=== PATIENT | female | born 1955 | race Two or more races ===

== ENCOUNTER 2021-02-11 01:51 | Inpatient (IN) | payer MEDICAID, OTHER ==
[2021-02-11] VITALS (71 sets, daily range): BP systolic 98–159; BP diastolic 45–95
[~2021-02-11] VITALS: Ht 167.6 cm; Wt 99.0 kg
[2021-02-11] MEDS ORDERED: KETAMINE HCL 50 MG/ML 10ML IM NR (02:15)
[2021-02-11] MEDS ORDERED: IPRATROPIUM BROMIDE (0.02%) 0.5MG/2.5ML NEB HHN STA (02:28)
[2021-02-11] MEDS ORDERED: ONDANSETRON HCL 4MG/2ML INJ IV STA (02:28)
[2021-02-11] MEDS ORDERED: METHYLPREDNISOLONE SOD SUCC 125 MG/2 ML VIAL IV STA (02:28)
[2021-02-11] MEDS ORDERED: MORPHINE SULFATE 4 MG/ML CPJ (NOT FOR IM USE) IV STA (02:28)
[2021-02-11] MEDS ORDERED: PROPOFOL 10MG/ML 100ML 100 ML IV ONE (02:30)
[2021-02-11] MEDS ORDERED: MAGNESIUM 2 G PREMIX 50 ML IV ONE (02:30)
[2021-02-11] MEDS ORDERED: VECURONIUM BROMIDE 10 MG/VIAL IV ONE (02:30)
[2021-02-11] MEDS ORDERED: ETOMIDATE 2MG/ML 10ML VIAL IV ONE (02:30)
[2021-02-11 02:47] LABS: BASOPHILS % 0.3 % (0.0-2.0); EOSINOPHILS % 1.5 % (0.0-5.0); HEMATOCRIT. 34.2 % (36.0-48.0); HEMOGLOBIN. 11.3 g/dL (12.0-16.0); LYMPHOCYTES % 10.4 % (20.0-50.0); MEAN CORPUSCULAR HEMOGLOBIN 30.3 pg (28.0-32.0); MEAN CORPUSCULAR VOLUME 91.7 fL (81.0-99.0); MEAN PLATELET VOLUME 7.3 fl (7.4-10.4); MONOCYTES % 6.3 % (2.0-8.0); NEUTROPHILS % 81.5 % (40.0-76.0); PLATELET 246 x1000/uL (130-400); RED BLOOD CELL COUNT 3.72 mill/uL (4.2-5.4); RED CELL DISTRIBUTION WIDTH 16.9 % (11.6-14.6)
[2021-02-11 02:57] LABS: D-DIMER 0.7 mg/L FEU (<0.50); PROTHROMBIN TIME 10.7 sec (9.6-11.0)
[2021-02-11 03:03] LABS: CHLORIDE 103 mEq/L (98-107)
[2021-02-11 03:19] LABS: BG BASE EXCESS -6.4 mmol/L (-2.0-2.0); BG CARBOXYHEMOGLOBIN 1.5 % (0.5-1.5); BG FRACTION INSPIRED OXYGEN 60; BG HCO3 ACT 22.5 mmol/L (22.0-26.0); BG METHEMOGLOBIN 0.2 % (0.0-1.5); BG OXYGEN SATURATION 89.8 % (92.0-98.5); BG OXYHEMOGLOBIN 88.3 % (94.0-97.0); BG PH 7.191 (7.350-7.450); BG PO2 69.1 mmHg (75.0-100.0); BG TOTAL HEMOGLOBIN 12.8 g/dL (12.0-18.0); BG VENT MODE VENT - AC
[2021-02-11] MEDS: ALBUTEROL (0.083%) 2.5MG/3ML NEB HHN SCH ×2 (03:24→03:30)
[2021-02-11] MEDS ORDERED: PROPOFOL 10MG/ML 100ML 100 ML IV PRN ×2 (06:45→10:45)
[2021-02-11] MEDS ORDERED: DEXT 5%/0.45% NACL 1000ML 1,000 ML IV SCH (07:00)
[2021-02-11 07:49] LABS: BG BASE EXCESS -7.8 mmol/L (-2.0-2.0); BG CARBOXYHEMOGLOBIN 0.2 % (0.5-1.5); BG DEOXYHEMOGLOBIN 5.7 % (0.0-5.0); BG FRACTION INSPIRED OXYGEN 75; BG HCO3 ACT 20.1 mmol/L (22.0-26.0); BG METHEMOGLOBIN 0.3 % (0.0-1.5); BG OXYGEN SATURATION 94.3 % (92.0-98.5); BG OXYHEMOGLOBIN 93.8 % (94.0-97.0); BG PH 7.213 (7.350-7.450); BG PO2 79.1 mmHg (75.0-100.0); BG SAMPLE SITE RIGHT RADIAL; BG TOTAL HEMOGLOBIN 12.5 g/dL (12.0-18.0); BG TOTAL RESPIRATORY RATE 24 b/min; BG VENT MODE VENT - AC
[2021-02-11] MEDS: IPRATROPIUM/ALBUTEROL 0.5-3(2.5)MG/3ML NEB HHN SCH ×4 (08:01→20:27)
[2021-02-11] MEDS ORDERED: ONDANSETRON HCL 4MG/2ML INJ IV PRN (08:15)
[2021-02-11] MEDS ORDERED: FUROSEMIDE 40MG/4ML VIAL IVP NR (08:15)
[2021-02-11] MEDS: PANTOPRAZOLE SODIUM 40 MG/VIAL IV SCH (08:36)
[2021-02-11] MEDS: CEFTRIAXONE 1,000 MG in DEXTROSE 5% WATER 50 ML IV SCH (08:36)
[2021-02-11] MEDS: ENOXAPARIN 30MG/0.3ML SYR SUBCUT SCH ×2 (08:37→21:00)
[2021-02-11] MEDS ORDERED: ENOXAPARIN 40MG/0.4ML SYR SUBCUT SCH (09:00)
[2021-02-11] MEDS ORDERED: PANTOPRAZOLE SODIUM 40 MG/VIAL IV SCH (09:00)
[2021-02-11] MEDS: AZITHROMYCIN 500 MG in DEXT 5% WATER 250 ML IV SCH (10:08)
[2021-02-11] MEDS: METHYLPREDNISOLONE SOD SUCC 125 MG/2 ML VIAL IV SCH ×2 (12:49→17:12)
[2021-02-11] MEDS: ISOSORBIDE DINITRATE 10MG TABLET PO SCH ×2 (12:50→17:12)
[2021-02-11] MEDS: HYDRALAZINE HCL 25MG TABLET PO SCH ×2 (13:06→21:00)
[2021-02-11 17:09] LABS: CLARITY URINE CLEAR (CLEAR); COLOR URINE YELLOW (YELLOW); KETONES URINE NEGATIVE (NEGATIVE); LEUKOCYTE ESTERASE URINE NEGATIVE (NEGATIVE); NITRITE URINE NEGATIVE (NEGATIVE); OCCULT BLOOD URINE NEGATIVE (NEGATIVE); PROTEIN URINE NEGATIVE (NEGATIVE); SPECIFIC GRAVITY URINE 1.014 (1.005-1.030); UROBILINOGEN URINE 0.2 E.U./dL (0.2-1.0)
[2021-02-11 17:18] LABS: *AMPHETAMINES SCREEN URINE NEGATIVE (NEGATIVE)
[2021-02-11 17:19] LABS: *BARBITURATES SCREEN URINE NEGATIVE (NEGATIVE); *BENZODIAZEPINES SCREEN URINE NEGATIVE (NEGATIVE); *COCAINE SCREEN URINE NEGATIVE (NEGATIVE); CANNABINOID URINE SCREEN NEGATIVE (NEGATIVE); METHADONE URINE SCREEN NEGATIVE (NEGATIVE); OPIATES URINE SCREEN PRESUMTIVE POSITIVE (NEGATIVE); PHENCYCLIDINE URINE SCREEN NEGATIVE (NEGATIVE)
[2021-02-11] MEDS ORDERED: MIDAZOLAM 100MG/100ML PMX 100 ML IV PRN (19:45)
[2021-02-11] MEDS: ATORVASTATIN CALCIUM 10MG TABLET PO SCH (21:00)
[2021-02-11] MEDS: MIDAZOLAM HCL 100 MG in SODIUM CHLORIDE 0.9% 100 ML IV PRN (22:06)
[2021-02-11] MEDS: FENTANYL CITRATE/PF 2,500 MCG in SODIUM CHLORIDE 0.9% 200 ML IV PRN (22:07)
[2021-02-12] VITALS (100 sets, daily range): BP systolic 66–163; BP diastolic 48–103
[2021-02-12] MEDS: IPRATROPIUM/ALBUTEROL 0.5-3(2.5)MG/3ML NEB HHN SCH ×5 (00:19→16:32)
[2021-02-12] MEDS: METHYLPREDNISOLONE SOD SUCC 125 MG/2 ML VIAL IV SCH ×2 (00:38→05:24)
[2021-02-12] MEDS: HYDRALAZINE HCL 25MG TABLET PO SCH (05:22)
[2021-02-12] MEDS: FENTANYL CITRATE/PF 2,500 MCG in SODIUM CHLORIDE 0.9% 200 ML IV PRN ×2 (05:22→18:34)
[2021-02-12 06:01] LABS: HEMATOCRIT. 34.1 % (36.0-48.0); HEMOGLOBIN. 11.3 g/dL (12.0-16.0); MEAN CORPUSCULAR HEMOGLOBIN 30.5 pg (28.0-32.0); MEAN CORPUSCULAR VOLUME 91.8 fL (81.0-99.0); MEAN PLATELET VOLUME 7.6 fl (7.4-10.4); PLATELET 310 x1000/uL (130-400); RED BLOOD CELL COUNT 3.71 mill/uL (4.2-5.4); RED CELL DISTRIBUTION WIDTH 17.1 % (11.6-14.6)
[2021-02-12 06:04] LABS: CHLORIDE 102 mEq/L (98-107)
[2021-02-12] MEDS ORDERED: NOREPINEPHRINE 8 MG in DEXT 5% WATER 242 ML IV PRN (07:45)
[2021-02-12 08:01] LABS: BG BASE EXCESS -3.7 mmol/L (-2.0-2.0); BG CARBOXYHEMOGLOBIN 0.3 % (0.5-1.5); BG DEOXYHEMOGLOBIN 1.2 % (0.0-5.0); BG FRACTION INSPIRED OXYGEN 75; BG METHEMOGLOBIN 0.1 % (0.0-1.5); BG OXYGEN SATURATION 98.8 % (92.0-98.5); BG OXYHEMOGLOBIN 98.4 % (94.0-97.0); BG PCO2 37.1 mmHg (35.0-45.0); BG PH 7.371 (7.350-7.450); BG PO2 152.8 mmHg (75.0-100.0); BG SAMPLE SITE RIGHT RADIAL; BG TOTAL HEMOGLOBIN 12.3 g/dL (12.0-18.0); BG VENT MODE VENT - AC
[2021-02-12] MEDS: PANTOPRAZOLE SODIUM 40 MG/VIAL IV SCH (08:34)
[2021-02-12] MEDS: CEFTRIAXONE 1,000 MG in DEXTROSE 5% WATER 50 ML IV SCH (08:34)
[2021-02-12] MEDS: ENOXAPARIN 30MG/0.3ML SYR SUBCUT SCH ×2 (08:34→21:13)
[2021-02-12] MEDS: ACETAMINOPHEN 325MG TABLET PO PRN (08:35)
[2021-02-12] MEDS: ISOSORBIDE DINITRATE 10MG TABLET PO SCH (08:35)
[2021-02-12] MEDS ORDERED: PHENYLEPHRINE 50 MG in DEXT 5% WATER 245 ML IV PRN (09:00)
[2021-02-12] MEDS ORDERED: BISACODYL 5MG TABLET PO PRN (09:15)
[2021-02-12] MEDS: AZITHROMYCIN 500 MG in DEXT 5% WATER 250 ML IV SCH (09:40)
[2021-02-12 10:06] LABS: PLATELET ESTIMATE NORMAL
[2021-02-12] MEDS: MIDODRINE HCL 5MG TABLET PO SCH ×3 (11:14→16:41)
[2021-02-12] MEDS: MIDAZOLAM HCL 100 MG in SODIUM CHLORIDE 0.9% 100 ML IV PRN ×2 (11:57→23:54)
[2021-02-12] MEDS: METHYLPREDNISOLONE SOD SUCC 40 MG/ML VIAL IV SCH ×2 (14:11→21:13)
[2021-02-12] MEDS ORDERED: VANCOMYCIN 2,000 MG in DEXT 5% WATER 500 ML IV NR (16:00)
[2021-02-12] MEDS ORDERED: AMIODARONE HCL 150 MG in DEXT 5% WATER 100 ML IV NR (19:30)
[2021-02-12] MEDS: ATORVASTATIN CALCIUM 10MG TABLET PO SCH (21:13)
[2021-02-12] MEDS: AMIODARONE HCL 900 MG in DEXT 5% WATER 482 ML IV PRN (21:42)
[2021-02-13] VITALS (74 sets, daily range): BP systolic 109–170; BP diastolic 63–107
[2021-02-13] MEDS: VANCOMYCIN 750 MG PREMIX 150 ML IV SCH ×2 (03:09→14:45)
[2021-02-13 05:54] LABS: HEMATOCRIT. 33.7 % (36.0-48.0); HEMOGLOBIN. 11.1 g/dL (12.0-16.0); MEAN CORPUSCULAR HEMOGLOBIN 29.7 pg (28.0-32.0); MEAN CORPUSCULAR VOLUME 89.9 fL (81.0-99.0); MEAN PLATELET VOLUME 7.7 fl (7.4-10.4); PLATELET 332 x1000/uL (130-400); RED BLOOD CELL COUNT 3.75 mill/uL (4.2-5.4); RED CELL DISTRIBUTION WIDTH 17.3 % (11.6-14.6)
[2021-02-13] MEDS: METHYLPREDNISOLONE SOD SUCC 40 MG/ML VIAL IV SCH ×3 (05:57→21:40)
[2021-02-13] MEDS: FENTANYL CITRATE/PF 2,500 MCG in SODIUM CHLORIDE 0.9% 200 ML IV PRN ×3 (05:58→23:17)
[2021-02-13 06:02] LABS: CHLORIDE 103 mEq/L (98-107)
[2021-02-13] MEDS: IPRATROPIUM/ALBUTEROL 0.5-3(2.5)MG/3ML NEB HHN SCH (07:57)
[2021-02-13] MEDS ORDERED: IPRATROPIUM BROMIDE (0.02%) 0.5MG/2.5ML NEB HHN PRN (08:15)
[2021-02-13] MEDS ORDERED: SODIUM CHLORIDE 3% FOR INH 4ML UD NEB INH NR (08:15)
[2021-02-13] MEDS: METOPROLOL TARTRATE 25MG TABLET PO SCH ×3 (09:00→21:39)
[2021-02-13 09:03] LABS: BG CARBOXYHEMOGLOBIN 0.2 % (0.5-1.5); BG DEOXYHEMOGLOBIN 7.9 % (0.0-5.0); BG FRACTION INSPIRED OXYGEN 80; BG HCO3 ACT 24.3 mmol/L (22.0-26.0); BG METHEMOGLOBIN 0.1 % (0.0-1.5); BG OXYGEN SATURATION 92.1 % (92.0-98.5); BG OXYHEMOGLOBIN 91.8 % (94.0-97.0); BG PCO2 38.3 mmHg (35.0-45.0); BG PH 7.421 (7.350-7.450); BG PO2 65.4 mmHg (75.0-100.0); BG SAMPLE SITE LEFT RADIAL; BG TOTAL HEMOGLOBIN 10.8 g/dL (12.0-18.0); BG VENT MODE VENT - AC
[2021-02-13] MEDS: AZITHROMYCIN 500 MG in DEXT 5% WATER 250 ML IV SCH (09:22)
[2021-02-13] MEDS: PANTOPRAZOLE SODIUM 40 MG/VIAL IV SCH (09:23)
[2021-02-13] MEDS: MIDODRINE HCL 5MG TABLET PO SCH (09:23)
[2021-02-13] MEDS: CEFTRIAXONE 1,000 MG in DEXTROSE 5% WATER 50 ML IV SCH (09:23)
[2021-02-13] MEDS: ENOXAPARIN 30MG/0.3ML SYR SUBCUT SCH ×2 (09:23→21:40)
[2021-02-13] MEDS: MIDAZOLAM HCL 100 MG in SODIUM CHLORIDE 0.9% 100 ML IV PRN ×2 (09:48→18:53)
[2021-02-13] MEDS: ACETYLCYSTEINE 100MG/ML 10% VIAL 4ML INH SCH ×3 (11:48→15:25)
[2021-02-13] MEDS: IPRATROPIUM BROMIDE (0.02%) 0.5MG/2.5ML NEB HHN SCH ×3 (11:49→20:48)
[2021-02-13 12:01] LABS: PLATELET ESTIMATE NORMAL
[2021-02-13] MEDS: CLOPIDOGREL 75MG TABLET PO SCH (14:31)
[2021-02-13] MEDS: ASPIRIN 81MG TABLET PO SCH (15:56)
[2021-02-13] MEDS: AMIODARONE HCL 900 MG in DEXT 5% WATER 482 ML IV PRN (18:52)
[2021-02-13] MEDS: ATORVASTATIN CALCIUM 10MG TABLET PO SCH (21:42)
[2021-02-14] VITALS (93 sets, daily range): BP systolic 115–181; BP diastolic 62–124
[2021-02-14] MEDS: IPRATROPIUM BROMIDE (0.02%) 0.5MG/2.5ML NEB HHN SCH ×6 (00:25→20:09)
[2021-02-14] MEDS: ACETYLCYSTEINE 100MG/ML 10% VIAL 4ML INH SCH ×3 (00:25→15:55)
[2021-02-14] MEDS: VANCOMYCIN 750 MG PREMIX 150 ML IV SCH (02:23)
[2021-02-14] MEDS: MIDAZOLAM HCL 100 MG in SODIUM CHLORIDE 0.9% 100 ML IV PRN ×2 (05:38→15:35)
[2021-02-14 05:47] LABS: BASOPHILS % 0.1 % (0.0-2.0); EOSINOPHILS % 0.1 % (0.0-5.0); HEMATOCRIT. 34.5 % (36.0-48.0); HEMOGLOBIN. 11.2 g/dL (12.0-16.0); LYMPHOCYTES % 8.6 % (20.0-50.0); MEAN CORPUSCULAR HEMOGLOBIN 29.9 pg (28.0-32.0); MEAN CORPUSCULAR VOLUME 92.3 fL (81.0-99.0); MEAN PLATELET VOLUME 7.5 fl (7.4-10.4); MONOCYTES % 2.5 % (2.0-8.0); NEUTROPHILS % 88.7 % (40.0-76.0); PLATELET 261 x1000/uL (130-400); RED BLOOD CELL COUNT 3.74 mill/uL (4.2-5.4); RED CELL DISTRIBUTION WIDTH 16.9 % (11.6-14.6)
[2021-02-14 05:51] LABS: CHLORIDE 101 mEq/L (98-107)
[2021-02-14] MEDS: METHYLPREDNISOLONE SOD SUCC 40 MG/ML VIAL IV SCH (06:07)
[2021-02-14] MEDS: FENTANYL CITRATE/PF 2,500 MCG in SODIUM CHLORIDE 0.9% 200 ML IV PRN ×3 (07:54→22:30)
[2021-02-14] MEDS: CEFTRIAXONE 1,000 MG in DEXTROSE 5% WATER 50 ML IV SCH (08:15)
[2021-02-14 08:52] LABS: BG BASE EXCESS -1.1 mmol/L (-2.0-2.0); BG CARBOXYHEMOGLOBIN 0.5 % (0.5-1.5); BG DEOXYHEMOGLOBIN 4.3 % (0.0-5.0); BG FRACTION INSPIRED OXYGEN 80; BG HCO3 ACT 22.5 mmol/L (22.0-26.0); BG METHEMOGLOBIN 0.2 % (0.0-1.5); BG OXYGEN SATURATION 95.7 % (92.0-98.5); BG PCO2 33.9 mmHg (35.0-45.0); BG PH 7.439 (7.350-7.450); BG PO2 79.2 mmHg (75.0-100.0); BG SAMPLE SITE LEFT RADIAL; BG TOTAL HEMOGLOBIN 12.1 g/dL (12.0-18.0); BG VENT MODE VENT - AC
[2021-02-14] MEDS ORDERED: ASPIRIN 81MG TABLET PO SCH (09:00)
[2021-02-14] MEDS ORDERED: LIDOCAINE HCL 2% JELLY 5ML ONE (09:11)
[2021-02-14] MEDS: AZITHROMYCIN 500 MG in DEXT 5% WATER 250 ML IV SCH (09:33)
[2021-02-14] MEDS: PANTOPRAZOLE SODIUM 40 MG/VIAL IV SCH (09:33)
[2021-02-14] MEDS: ENOXAPARIN 30MG/0.3ML SYR SUBCUT SCH ×2 (09:34→20:19)
[2021-02-14] MEDS: METOPROLOL TARTRATE 25MG TABLET PO SCH (09:34)
[2021-02-14] MEDS: ASPIRIN 81MG TABLET PO SCH (09:34)
[2021-02-14] MEDS: CLOPIDOGREL 75MG TABLET PO SCH (09:34)
[2021-02-14] MEDS ORDERED: IOHEXOL-350 100 ML BOTTLE ONE (13:14)
[2021-02-14] MEDS ORDERED: METOPROLOL TARTRATE 25MG TABLET PO SCH (16:15)
[2021-02-14] MEDS: LORAZEPAM 2MG/ML CPJ IV PRN (16:40)
[2021-02-14] MEDS ORDERED: METHYLPREDNISOLONE SOD SUCC 40 MG/ML VIAL IV SCH (17:00)
[2021-02-14] MEDS: VANCOMYCIN 1 G PREMIX 200 ML IV SCH (17:20)
[2021-02-14] MEDS ORDERED: LACTULOSE 20G/30ML UDC PO PRN (19:15)
[2021-02-14] MEDS: ATORVASTATIN CALCIUM 10MG TABLET PO SCH (20:19)
[2021-02-14] MEDS ORDERED: METOPROLOL TARTRATE 50MG TABLET PO SCH (21:00)
[2021-02-14] MEDS: HYDRALAZINE 20MG/ML VIAL IV PRN (23:36)
[2021-02-15] VITALS (94 sets, daily range): BP systolic 82–187; BP diastolic 48–133
[2021-02-15] MEDS: ACETYLCYSTEINE 100MG/ML 10% VIAL 4ML INH SCH ×3 (00:08→15:33)
[2021-02-15] MEDS: IPRATROPIUM BROMIDE (0.02%) 0.5MG/2.5ML NEB HHN SCH ×6 (00:08→20:27)
[2021-02-15] MEDS: MIDAZOLAM HCL 100 MG in SODIUM CHLORIDE 0.9% 100 ML IV PRN ×3 (01:46→19:03)
[2021-02-15 04:50] LABS: HEMATOCRIT. 40.7 % (36.0-48.0); HEMOGLOBIN. 13.7 g/dL (12.0-16.0); MEAN CORPUSCULAR HEMOGLOBIN 30.6 pg (28.0-32.0); MEAN CORPUSCULAR VOLUME 90.6 fL (81.0-99.0); MEAN PLATELET VOLUME 7.4 fl (7.4-10.4); PLATELET 281 x1000/uL (130-400); RED BLOOD CELL COUNT 4.49 mill/uL (4.2-5.4); RED CELL DISTRIBUTION WIDTH 16.9 % (11.6-14.6)
[2021-02-15 05:00] LABS: CHLORIDE 100 mEq/L (98-107)
[2021-02-15] MEDS: FENTANYL CITRATE/PF 2,500 MCG in SODIUM CHLORIDE 0.9% 200 ML IV PRN ×3 (06:20→23:10)
[2021-02-15 07:52] LABS: PLATELET ESTIMATE NORMAL
[2021-02-15] MEDS: CEFTRIAXONE 1,000 MG in DEXTROSE 5% WATER 50 ML IV SCH (08:04)
[2021-02-15] MEDS: HYDRALAZINE 20MG/ML VIAL IV PRN ×2 (08:06→16:15)
[2021-02-15] MEDS: PANTOPRAZOLE SODIUM 40 MG/VIAL IV SCH (08:55)
[2021-02-15] MEDS: ASPIRIN 81MG TABLET PO SCH (08:57)
[2021-02-15] MEDS: METOPROLOL TARTRATE 50MG TABLET PO SCH ×3 (08:57→22:35)
[2021-02-15] MEDS: LORAZEPAM 2MG/ML CPJ IV PRN ×3 (08:58→22:30)
[2021-02-15] MEDS: METHYLPREDNISOLONE SOD SUCC 40 MG/ML VIAL IV SCH (08:58)
[2021-02-15 08:59] LABS: BG BASE EXCESS 2.2 mmol/L (-2.0-2.0); BG CARBOXYHEMOGLOBIN 0.6 % (0.5-1.5); BG DEOXYHEMOGLOBIN 5.5 % (0.0-5.0); BG HCO3 ACT 26.1 mmol/L (22.0-26.0); BG METHEMOGLOBIN 0.4 % (0.0-1.5); BG OXYGEN SATURATION 94.4 % (92.0-98.5); BG OXYHEMOGLOBIN 93.5 % (94.0-97.0); BG PCO2 38.3 mmHg (35.0-45.0); BG PH 7.452 (7.350-7.450); BG PO2 73.9 mmHg (75.0-100.0); BG SAMPLE SITE RIGHT RADIAL; BG TOTAL HEMOGLOBIN 13.1 g/dL (12.0-18.0); BG VENT MODE VENT - AC
[2021-02-15 09:01] LABS: BG VENT RATE 20 set
[2021-02-15 09:02] LABS: BG FRACTION INSPIRED OXYGEN 70; BG TIDAL VOLUME(mL) 450 mL
[2021-02-15] MEDS: ENOXAPARIN 30MG/0.3ML SYR SUBCUT SCH ×2 (09:08→21:58)
[2021-02-15] MEDS: CLOPIDOGREL 75MG TABLET PO SCH (09:13)
[2021-02-15] MEDS ORDERED: FUROSEMIDE 40MG/4ML VIAL IVP NR (09:30)
[2021-02-15] MEDS: VANCOMYCIN 1 G PREMIX 200 ML IV SCH (12:32)
[2021-02-15] MEDS: ATORVASTATIN CALCIUM 10MG TABLET PO SCH (22:14)
[2021-02-16] VITALS (98 sets, daily range): BP systolic 74–163; BP diastolic 33–118
[2021-02-16] MEDS: ACETYLCYSTEINE 100MG/ML 10% VIAL 4ML INH SCH ×3 (00:07→15:55)
[2021-02-16] MEDS: IPRATROPIUM BROMIDE (0.02%) 0.5MG/2.5ML NEB HHN SCH ×7 (00:07→20:16)
[2021-02-16] MEDS: HYDRALAZINE 20MG/ML VIAL IV PRN (00:08)
[2021-02-16] MEDS ORDERED: METOPROLOL TARTRATE 25MG TABLET PO SCH (00:30)
[2021-02-16] MEDS: LORAZEPAM 2MG/ML CPJ IV PRN ×5 (01:08→22:27)
[2021-02-16 05:49] LABS: BASOPHILS % 0.1 % (0.0-2.0); EOSINOPHILS % 0.2 % (0.0-5.0); HEMOGLOBIN. 12.6 g/dL (12.0-16.0); LYMPHOCYTES % 18.4 % (20.0-50.0); MEAN CORPUSCULAR VOLUME 90.6 fL (81.0-99.0); MEAN PLATELET VOLUME 7.3 fl (7.4-10.4); MONOCYTES % 11.6 % (2.0-8.0); NEUTROPHILS % 69.7 % (40.0-76.0); PLATELET 281 x1000/uL (130-400); RED BLOOD CELL COUNT 4.19 mill/uL (4.2-5.4); RED CELL DISTRIBUTION WIDTH 16.2 % (11.6-14.6)
[2021-02-16] MEDS: VANCOMYCIN 1 G PREMIX 200 ML IV SCH (06:11)
[2021-02-16] MEDS: MIDAZOLAM HCL 100 MG in SODIUM CHLORIDE 0.9% 100 ML IV PRN ×2 (06:38→13:39)
[2021-02-16] MEDS: FENTANYL CITRATE/PF 2,500 MCG in SODIUM CHLORIDE 0.9% 200 ML IV PRN ×3 (06:40→22:39)
[2021-02-16] MEDS ORDERED: METOPROLOL TARTRATE 100MG TABLET PO SCH (09:00)
[2021-02-16 09:20] LABS: BG BASE EXCESS 2.5 mmol/L (-2.0-2.0); BG CARBOXYHEMOGLOBIN 1.2 % (0.5-1.5); BG DEOXYHEMOGLOBIN 5.2 % (0.0-5.0); BG FRACTION INSPIRED OXYGEN 60; BG HCO3 ACT 27.3 mmol/L (22.0-26.0); BG METHEMOGLOBIN 0.2 % (0.0-1.5); BG OXYGEN SATURATION 94.7 % (92.0-98.5); BG OXYHEMOGLOBIN 93.4 % (94.0-97.0); BG PCO2 42.8 mmHg (35.0-45.0); BG PH 7.423 (7.350-7.450); BG PO2 72.4 mmHg (75.0-100.0); BG SAMPLE SITE RIGHT RADIAL; BG TOTAL HEMOGLOBIN 15.6 g/dL (12.0-18.0); BG VENT MODE VENT - AC
[2021-02-16] MEDS: CLOPIDOGREL 75MG TABLET PO SCH (09:57)
[2021-02-16] MEDS: ASPIRIN 81MG TABLET PO SCH (09:57)
[2021-02-16] MEDS: ENOXAPARIN 30MG/0.3ML SYR SUBCUT SCH ×2 (09:57→21:32)
[2021-02-16] MEDS: METHYLPREDNISOLONE SOD SUCC 40 MG/ML VIAL IV SCH (09:57)
[2021-02-16] MEDS: PANTOPRAZOLE SODIUM 40 MG/VIAL IV SCH (09:57)
[2021-02-16] MEDS: METOPROLOL TARTRATE 5MG/5ML VIAL IV PRN ×2 (13:47→23:50)
[2021-02-16] MEDS: ATORVASTATIN CALCIUM 10MG TABLET PO SCH (21:31)
[2021-02-17] VITALS (101 sets, daily range): BP systolic 76–179; BP diastolic 38–107
[2021-02-17] MEDS: IPRATROPIUM BROMIDE (0.02%) 0.5MG/2.5ML NEB HHN SCH ×5 (00:14→20:23)
[2021-02-17] MEDS: ACETYLCYSTEINE 100MG/ML 10% VIAL 4ML INH SCH ×3 (00:15→16:04)
[2021-02-17] MEDS: MIDAZOLAM HCL 100 MG in SODIUM CHLORIDE 0.9% 100 ML IV PRN (02:26)
[2021-02-17] MEDS: LORAZEPAM 2MG/ML CPJ IV PRN ×3 (04:33→23:39)
[2021-02-17] MEDS: FENTANYL CITRATE/PF 2,500 MCG in SODIUM CHLORIDE 0.9% 200 ML IV PRN (05:17)
[2021-02-17 05:50] LABS: BASOPHILS % 0.2 % (0.0-2.0); EOSINOPHILS % 0.5 % (0.0-5.0); HEMATOCRIT. 39.4 % (36.0-48.0); HEMOGLOBIN. 12.8 g/dL (12.0-16.0); LYMPHOCYTES % 18.4 % (20.0-50.0); MEAN CORPUSCULAR HEMOGLOBIN 29.6 pg (28.0-32.0); MEAN CORPUSCULAR VOLUME 91.1 fL (81.0-99.0); MEAN PLATELET VOLUME 7.5 fl (7.4-10.4); MONOCYTES % 9.3 % (2.0-8.0); NEUTROPHILS % 71.6 % (40.0-76.0); PLATELET 252 x1000/uL (130-400); RED BLOOD CELL COUNT 4.33 mill/uL (4.2-5.4); RED CELL DISTRIBUTION WIDTH 16.3 % (11.6-14.6)
[2021-02-17 05:52] LABS: CHLORIDE 107 mEq/L (98-107)
[2021-02-17] MEDS: PANTOPRAZOLE SODIUM 40 MG/VIAL IV SCH (08:20)
[2021-02-17] MEDS: METHYLPREDNISOLONE SOD SUCC 40 MG/ML VIAL IV SCH (08:20)
[2021-02-17] MEDS: ENOXAPARIN 30MG/0.3ML SYR SUBCUT SCH ×2 (08:21→21:21)
[2021-02-17] MEDS: ASPIRIN 81MG TABLET PO SCH (08:21)
[2021-02-17] MEDS: CLOPIDOGREL 75MG TABLET PO SCH (08:21)
[2021-02-17 08:39] LABS: BG BASE EXCESS 1.7 mmol/L (-2.0-2.0); BG CARBOXYHEMOGLOBIN 0.8 % (0.5-1.5); BG DEOXYHEMOGLOBIN 1.2 % (0.0-5.0); BG FRACTION INSPIRED OXYGEN 60; BG HCO3 ACT 27.7 mmol/L (22.0-26.0); BG METHEMOGLOBIN 0.2 % (0.0-1.5); BG OXYGEN SATURATION 98.8 % (92.0-98.5); BG OXYHEMOGLOBIN 97.8 % (94.0-97.0); BG PCO2 49.2 mmHg (35.0-45.0); BG PH 7.368 (7.350-7.450); BG PO2 140.3 mmHg (75.0-100.0); BG SAMPLE SITE LEFT RADIAL; BG VENT MODE VENT - AC
[2021-02-17] MEDS: METOPROLOL TARTRATE 25MG TABLET PO SCH ×2 (12:48→21:21)
[2021-02-17 12:54] LABS: BG CARBOXYHEMOGLOBIN 0.7 % (0.5-1.5); BG DEOXYHEMOGLOBIN 2.2 % (0.0-5.0); BG FRACTION INSPIRED OXYGEN 50; BG HCO3 ACT 26.7 mmol/L (22.0-26.0); BG METHEMOGLOBIN 0.2 % (0.0-1.5); BG OXYGEN SATURATION 97.8 % (92.0-98.5); BG OXYHEMOGLOBIN 96.9 % (94.0-97.0); BG PCO2 41.9 mmHg (35.0-45.0); BG PH 7.422 (7.350-7.450); BG PO2 101.1 mmHg (75.0-100.0); BG SAMPLE SITE RIGHT RADIAL; BG TOTAL HEMOGLOBIN 13.8 g/dL (12.0-18.0); BG VENT MODE VENT - P/C
[2021-02-17] MEDS: ACETAMINOPHEN 325MG TABLET PO PRN (15:08)
[2021-02-17] MEDS: VANCOMYCIN 1 G PREMIX 200 ML IV SCH ×2 (17:39)
[2021-02-17] MEDS: ATORVASTATIN CALCIUM 40MG TABLET PO SCH (21:20)
[2021-02-18] VITALS (48 sets, daily range): BP systolic 126–196; BP diastolic 66–122
[2021-02-18] MEDS: IPRATROPIUM BROMIDE (0.02%) 0.5MG/2.5ML NEB HHN SCH ×6 (00:22→20:37)
[2021-02-18] MEDS: ACETYLCYSTEINE 100MG/ML 10% VIAL 4ML INH SCH ×2 (00:23→07:53)
[2021-02-18 05:39] LABS: CHLORIDE 107 mEq/L (98-107)
[2021-02-18 05:41] LABS: BASOPHILS % 0.1 % (0.0-2.0); EOSINOPHILS % 1.3 % (0.0-5.0); HEMATOCRIT. 37.1 % (36.0-48.0); HEMOGLOBIN. 12.2 g/dL (12.0-16.0); LYMPHOCYTES % 23.8 % (20.0-50.0); MEAN CORPUSCULAR HEMOGLOBIN 29.8 pg (28.0-32.0); MEAN CORPUSCULAR VOLUME 90.2 fL (81.0-99.0); MEAN PLATELET VOLUME 7.8 fl (7.4-10.4); MONOCYTES % 9.9 % (2.0-8.0); NEUTROPHILS % 64.9 % (40.0-76.0); PLATELET 231 x1000/uL (130-400); RED BLOOD CELL COUNT 4.11 mill/uL (4.2-5.4); RED CELL DISTRIBUTION WIDTH 15.7 % (11.6-14.6)
[2021-02-18] MEDS: ASPIRIN 81MG TABLET PO SCH (10:19)
[2021-02-18] MEDS: CLOPIDOGREL 75MG TABLET PO SCH (10:19)
[2021-02-18] MEDS: METOPROLOL TARTRATE 25MG TABLET PO SCH ×2 (10:20→20:08)
[2021-02-18] MEDS: ENOXAPARIN 30MG/0.3ML SYR SUBCUT SCH ×2 (10:21→20:08)
[2021-02-18] MEDS: PANTOPRAZOLE SODIUM 40 MG/VIAL IV SCH (10:24)
[2021-02-18 10:36] LABS: BG BASE EXCESS 2.4 mmol/L (-2.0-2.0); BG CARBOXYHEMOGLOBIN 0.4 % (0.5-1.5); BG DEOXYHEMOGLOBIN 7.6 % (0.0-5.0); BG FRACTION INSPIRED OXYGEN 32; BG HCO3 ACT 24.6 mmol/L (22.0-26.0); BG METHEMOGLOBIN 0.3 % (0.0-1.5); BG OXYGEN SATURATION 92.3 % (92.0-98.5); BG OXYHEMOGLOBIN 91.7 % (94.0-97.0); BG PH 7.517 (7.350-7.450); BG PO2 59.5 mmHg (75.0-100.0); BG SAMPLE SITE LEFT RADIAL; BG TOTAL HEMOGLOBIN 13.6 g/dL (12.0-18.0); BG VENT MODE NASAL CANNULA
[2021-02-18] MEDS: LORAZEPAM 2MG/ML CPJ IV PRN ×3 (11:15→20:08)
[2021-02-18] MEDS: VANCOMYCIN 1 G PREMIX 200 ML IV SCH (12:58)
[2021-02-18] MEDS: ACETAMINOPHEN 325MG TABLET PO PRN (13:22)
[2021-02-18] MEDS: HYDRALAZINE 20MG/ML VIAL IV PRN (18:17)
[2021-02-18] MEDS: ATORVASTATIN CALCIUM 40MG TABLET PO SCH (20:09)
[2021-02-19] VITALS (11 sets, daily range): BP systolic 103–156; BP diastolic 54–99
[2021-02-19] MEDS: LORAZEPAM 2MG/ML CPJ IV PRN ×3 (00:19→23:13)
[2021-02-19] MEDS: IPRATROPIUM BROMIDE (0.02%) 0.5MG/2.5ML NEB HHN SCH ×6 (00:58→21:28)
[2021-02-19] MEDS: VANCOMYCIN 1 G PREMIX 200 ML IV SCH ×2 (06:02→23:13)
[2021-02-19 07:18] LABS: BASOPHILS % 0.1 % (0.0-2.0); EOSINOPHILS % 4.6 % (0.0-5.0); HEMATOCRIT. 40.9 % (36.0-48.0); HEMOGLOBIN. 13.5 g/dL (12.0-16.0); LYMPHOCYTES % 22.3 % (20.0-50.0); MEAN CORPUSCULAR VOLUME 91.1 fL (81.0-99.0); MONOCYTES % 10.3 % (2.0-8.0); NEUTROPHILS % 62.7 % (40.0-76.0); PLATELET 205 x1000/uL (130-400); RED BLOOD CELL COUNT 4.49 mill/uL (4.2-5.4); RED CELL DISTRIBUTION WIDTH 15.5 % (11.6-14.6)
[2021-02-19 07:23] LABS: CHLORIDE 108 mEq/L (98-107)
[2021-02-19] MEDS: METOPROLOL TARTRATE 25MG TABLET PO SCH (09:51)
[2021-02-19] MEDS: CLOPIDOGREL 75MG TABLET PO SCH (09:51)
[2021-02-19] MEDS: ASPIRIN 81MG TABLET PO SCH (09:51)
[2021-02-19] MEDS: ENOXAPARIN 30MG/0.3ML SYR SUBCUT SCH ×2 (09:54→22:02)
[2021-02-19] MEDS: PANTOPRAZOLE SODIUM 40 MG/VIAL IV SCH (09:54)
[2021-02-19] MEDS: HYDROCODONE/ACETAMINOPHEN 5/325MG TABLET PO PRN ×4 (09:56→22:40)
[2021-02-19] MEDS: SPIRONOLACTONE 25MG TABLET PO SCH (10:03)
[2021-02-19] MEDS ORDERED: KCL 20MEQ/100ML PREMIX 100 ML IV NR ×2 (10:30→15:00)
[2021-02-19] MEDS ORDERED: POTASSIUM CHLORIDE INJ 40 MEQ in DEXT 5% WATER 250 ML IV NR ×2 (12:30→16:30)
[2021-02-19] MEDS: LISINOPRIL 5MG TABLET PO SCH (13:31)
[2021-02-19] MEDS ORDERED: ERGO500013 PO (13:56)
[2021-02-19] MEDS ORDERED: AMLO5TAB88 PO (13:56)
[2021-02-19] MEDS ORDERED: FLUT16SP15 (13:56)
[2021-02-19] MEDS ORDERED: ATOR20TA65 PO (13:56)
[2021-02-19] MEDS ORDERED: CLOP75TA33 PO (13:56)
[2021-02-19] MEDS ORDERED: MIRT15TA6 PO (13:56)
[2021-02-19] MEDS ORDERED: PANT40TA51 PO (13:56)
[2021-02-19] MEDS ORDERED: DIPH50CA38 PO (13:56)
[2021-02-19] MEDS ORDERED: ASPI-1406 PO (13:56)
[2021-02-19] MEDS ORDERED: MAGN400T26 PO (13:56)
[2021-02-19] MEDS ORDERED: TRAZ-251 PO (13:56)
[2021-02-19] MEDS ORDERED: FURO40TA5 PO (13:56)
[2021-02-19] MEDS ORDERED: LISI20TA31 PO (13:56)
[2021-02-19] MEDS ORDERED: NIFE-33 PO (13:56)
[2021-02-19] MEDS ORDERED: GABA-532 PO (13:56)
[2021-02-19] MEDS ORDERED: BACL-141 PO (13:56)
[2021-02-19] MEDS ORDERED: OXYC30TA2 PO (13:56)
[2021-02-19] MEDS ORDERED: FERR325T6 MT (13:58)
[2021-02-19] MEDS ORDERED: POTA10CA42 PO (14:04)
[2021-02-19] MEDS ORDERED: METO100T16 PO (14:04)
[2021-02-19] MEDS: GABAPENTIN 300MG CAPSULE PO SCH (16:38)
[2021-02-19] MEDS ORDERED: FLUTICASONE PROPIONATE 50MCG/SPRAY BOTTLE BOTHNSTRLS SCH (18:00)
[2021-02-19] MEDS: FLUTICASONE PROPIONATE 50MCG/SPRAY BOTTLE BOTHNSTRLS SCH (18:17)
[2021-02-19] MEDS: ATORVASTATIN CALCIUM 40MG TABLET PO SCH (22:02)
[2021-02-19] MEDS: METOPROLOL TARTRATE 100MG TABLET PO SCH (22:09)
[2021-02-20] VITALS (13 sets, daily range): BP systolic 102–161; BP diastolic 68–97
[2021-02-20] MEDS: IPRATROPIUM BROMIDE (0.02%) 0.5MG/2.5ML NEB HHN SCH ×6 (01:27→21:18)
[2021-02-20] MEDS: HYDROCODONE/ACETAMINOPHEN 5/325MG TABLET PO PRN ×5 (03:03→23:15)
[2021-02-20] MEDS: LORAZEPAM 2MG/ML CPJ IV PRN ×4 (04:56→19:33)
[2021-02-20] MEDS: PHENOL/SODIUM PHENOLATE 1.4% SRPAY 177ML MM PRN ×2 (04:56→10:50)
[2021-02-20] MEDS: LISINOPRIL 5MG TABLET PO SCH (09:06)
[2021-02-20] MEDS: CLOPIDOGREL 75MG TABLET PO SCH (09:06)
[2021-02-20] MEDS: ENOXAPARIN 30MG/0.3ML SYR SUBCUT SCH ×2 (09:06→21:10)
[2021-02-20] MEDS: SPIRONOLACTONE 25MG TABLET PO SCH (09:06)
[2021-02-20] MEDS: GABAPENTIN 300MG CAPSULE PO SCH ×3 (09:06→21:10)
[2021-02-20] MEDS: PANTOPRAZOLE SODIUM 40 MG/VIAL IV SCH (09:06)
[2021-02-20] MEDS: ASPIRIN 81MG TABLET PO SCH (09:06)
[2021-02-20] MEDS: METOPROLOL TARTRATE 100MG TABLET PO SCH ×2 (09:06→21:09)
[2021-02-20 12:42] LABS: HEMATOCRIT 34.6 % (36.0-48.0); HEMOGLOBIN 12.1 g/dL (12.0-16.0); MEAN CORPUSCULAR HEMOGLOBIN 31.3 pg (28.0-32.0); MEAN CORPUSCULAR VOLUME 89.8 fL (81.0-99.0); PLATELET 182 x1000/uL (130-400); RED BLOOD CELL COUNT 3.86 mill/uL (4.2-5.4); RED CELL DISTRIBUTION WIDTH 15.7 % (11.6-14.6)
[2021-02-20 12:44] LABS: CHLORIDE 109 mEq/L (98-107)
[2021-02-20] MEDS: FLUTICASONE PROPIONATE 50MCG/SPRAY BOTTLE BOTHNSTRLS SCH (17:44)
[2021-02-20] MEDS ORDERED: MIRTAZAPINE 15MG TABLET PO SCH (21:00)
[2021-02-20] MEDS: ATORVASTATIN CALCIUM 40MG TABLET PO SCH (21:09)
[2021-02-21] VITALS (8 sets, daily range): BP systolic 117–141; BP diastolic 65–80
[2021-02-21] MEDS: LORAZEPAM 2MG/ML CPJ IV PRN (00:43)
[2021-02-21] MEDS: HYDROCODONE/ACETAMINOPHEN 5/325MG TABLET PO PRN ×2 (03:21→11:16)
[2021-02-21] MEDS: IPRATROPIUM BROMIDE (0.02%) 0.5MG/2.5ML NEB HHN SCH ×4 (04:00→12:07)
[2021-02-21] MEDS: GABAPENTIN 300MG CAPSULE PO SCH ×2 (05:17→13:58)
[2021-02-21] MEDS: PHENOL/SODIUM PHENOLATE 1.4% SRPAY 177ML MM PRN ×2 (05:17→11:16)
[2021-02-21 05:49] LABS: BASOPHILS % 0.4 % (0.0-2.0); EOSINOPHILS % 7.9 % (0.0-5.0); HEMATOCRIT. 37.5 % (36.0-48.0); HEMOGLOBIN. 12.7 g/dL (12.0-16.0); LYMPHOCYTES % 29.9 % (20.0-50.0); MEAN CORPUSCULAR HEMOGLOBIN 30.8 pg (28.0-32.0); MEAN PLATELET VOLUME 8.3 fl (7.4-10.4); MONOCYTES % 10.5 % (2.0-8.0); NEUTROPHILS % 51.3 % (40.0-76.0); PLATELET 167 x1000/uL (130-400); RED BLOOD CELL COUNT 4.12 mill/uL (4.2-5.4); RED CELL DISTRIBUTION WIDTH 15.8 % (11.6-14.6)
[2021-02-21] MEDS: ACETAMINOPHEN 325MG TABLET PO PRN (05:53)
[2021-02-21 05:59] LABS: CHLORIDE 111 mEq/L (98-107)
[2021-02-21 08:14] LABS: BG BASE EXCESS 1.5 mmol/L (-2.0-2.0); BG CARBOXYHEMOGLOBIN 0.9 % (0.5-1.5); BG DEOXYHEMOGLOBIN 5.6 % (0.0-5.0); BG FRACTION INSPIRED OXYGEN 21; BG METHEMOGLOBIN 0.3 % (0.0-1.5); BG OXYGEN SATURATION 94.3 % (92.0-98.5); BG OXYHEMOGLOBIN 93.2 % (94.0-97.0); BG PCO2 35.8 mmHg (35.0-45.0); BG PH 7.462 (7.350-7.450); BG SAMPLE SITE RIGHT RADIAL; BG TOTAL HEMOGLOBIN 13.1 g/dL (12.0-18.0); BG VENT MODE ROOM AIR
[2021-02-21] MEDS: CLOPIDOGREL 75MG TABLET PO SCH (08:21)
[2021-02-21] MEDS: PANTOPRAZOLE SODIUM 40 MG/VIAL IV SCH (08:21)
[2021-02-21] MEDS: ASPIRIN 81MG TABLET PO SCH (08:22)
[2021-02-21] MEDS: LISINOPRIL 5MG TABLET PO SCH (08:22)
[2021-02-21] MEDS: ENOXAPARIN 30MG/0.3ML SYR SUBCUT SCH (08:22)
[2021-02-21] MEDS: SPIRONOLACTONE 25MG TABLET PO SCH (08:22)
[2021-02-21] MEDS: METOPROLOL TARTRATE 100MG TABLET PO SCH (08:22)
== END 2021-02-21 14:21 | disposition home health service (06) | DRG 720 ==
LOC: ER 01:51 → EDBD 01:51 → MICUSO 02:56 → EDBEDREQ 03:03 → EDBEDREQTM 03:03 → ENRESERV 04:25 → MICUSO 02-12 14:54 → 3WST 02-18 21:38
PROVIDERS: ADMIT Internal Medicine; ATTEND Internal Medicine
PROC: 5A1955Z Respiratory Ventilation, Greater than 96 Consecutive Hours (ICD-10-PCS; principal; 2021-02-11)
PROC: 0BH17EZ Insertion of Endotracheal Airway into Trachea, Via Natural or Artificial Opening (ICD-10-PCS; 2021-02-11)
PROC: 3E0A3GC Introduction of Other Therapeutic Substance into Bone Marrow, Percutaneous Approach (ICD-10-PCS; 2021-02-11)
PROC: 06HY33Z Insertion of Infusion Device into Lower Vein, Percutaneous Approach (ICD-10-PCS; 2021-02-11)
PROC: B54BZZA Ultrasonography of Right Lower Extremity Veins, Guidance (ICD-10-PCS; 2021-02-11)
PROC: 02H633Z Insertion of Infusion Device into Right Atrium, Percutaneous Approach (ICD-10-PCS; 2021-02-16)
PROC: B548ZZA Ultrasonography of Superior Vena Cava, Guidance (ICD-10-PCS; 2021-02-16)
DX: A41.9 Sepsis, unspecified organism (principal); N17.0 Acute kidney failure with tubular necrosis; J96.01 Acute respiratory failure with hypoxia; J96.02 Acute respiratory failure with hypercapnia; I11.0 Hypertensive heart disease with heart failure; G93.41 Metabolic encephalopathy; E87.2 Acidosis; J15.212 Pneumonia due to Methicillin resistant Staphylococcus aureus; I50.32 Chronic diastolic (congestive) heart failure; J44.0 Chronic obstructive pulmonary disease with (acute) lower respiratory infection; E66.9 Obesity, unspecified; E87.1 Hypo-osmolality and hyponatremia; I44.0 Atrioventricular block, first degree; I47.1 Supraventricular tachycardia; D64.9 Anemia, unspecified; E78.1 Pure hyperglyceridemia; G62.9 Polyneuropathy, unspecified; E78.5 Hyperlipidemia, unspecified; E87.6 Hypokalemia; F17.210 Nicotine dependence, cigarettes, uncomplicated; Z20.822 Contact with and (suspected) exposure to COVID-19; I25.10 Atherosclerotic heart disease of native coronary artery without angina pectoris; I25.2 Old myocardial infarction; Z78.1 Physical restraint status; Z85.3 Personal history of malignant neoplasm of breast; Z86.73 Personal history of transient ischemic attack (TIA), and cerebral infarction without residual deficits; Z90.10 Acquired absence of unspecified breast and nipple; Z95.5 Presence of coronary angioplasty implant and graft; Z79.899 Other long term (current) drug therapy; Z79.82 Long term (current) use of aspirin; I34.0 Nonrheumatic mitral (valve) insufficiency; Z71.6 Tobacco abuse counseling; Z68.35 Body mass index [BMI] 35.0-35.9, adult; Z76.5 Malingerer [conscious simulation]
CPT/HCPCS: 36415; 36573; 36600; 71045; 71275; 80048; 80053; 80061; 80202; 80305; 81003; 82040; 82375; 82805; 82962; 83605; 83880; 84134; 84145; 84443; 84478; 84484; 85025; 85027; 85379; 87070; 87077; 87186; 92610; 93005; 93306; 93312; 93970; 94002; 94003; 94640; 94667; 97116; 97161; 97164; 97530; 99291; A6261; C1725; C9113; J0282; J0360; J0456; J0696; J1650; J1940; J2060; J2250; J2270; J2370; J2405; J2704; J2920; J2930; J3010; J3370; J3475; J3480; J3490; J7050; J7060; J7608; Q9967; U0003

== ENCOUNTER 2021-10-21 02:27 | Inpatient (IN) | payer MEDICAID, OTHER ==
[~2021-10-21] VITALS: Ht 165.1 cm; Wt 98.4 kg
[~2021-10-21 02:27] MED LIST: AMLO5TAB88 PO; ASPI-1406 PO; ATOR20TA65 PO; BACL-141 PO; CLOP75TA33 PO; DIPH50CA38 PO; ERGO1250 PO; FERR325T6 MT; FLUT16SP15; FURO40TA5 PO; GABA-532 PO; LISI20TA31 PO; MAGN400T26 PO; METO100T16 PO; MIRT-89 PO; NIFE-33 PO; OXYC30TA2 PO; PANT40TA51 PO; POTA10CA42 PO; TRAZ-251 PO
[2021-10-21] MEDS ORDERED: SODIUM CHLORIDE 0.9% 1,000 ML IV ONE (03:30)
[2021-10-21] MEDS ORDERED: FENTANYL CITRATE/PF 1,000 MCG in SODIUM CHLORIDE 0.9% 80 ML IV STA (03:31)
[2021-10-21] MEDS ORDERED: ALBUTEROL (0.083%) 2.5MG/3ML NEB HHN STA (03:38)
[2021-10-21] MEDS ORDERED: METHYLPREDNISOLONE SOD SUCC 125 MG/2 ML VIAL IV STA (03:38)
[2021-10-21] MEDS ORDERED: IPRATROPIUM BROMIDE (0.02%) 0.5MG/2.5ML NEB HHN STA (03:38)
[2021-10-21] MEDS ORDERED: PROPOFOL 10MG/ML 100ML 100 ML IV SCH (03:45)
[2021-10-21] MEDS ORDERED: ETOMIDATE 2MG/ML 10ML VIAL IV ONE ×2 (03:45→07:41)
[2021-10-21] MEDS ORDERED: FENTANYL CITRATE 2,500 MCG in SODIUM CHLORIDE 0.9% 200 ML IV PRN (03:45)
[2021-10-21] MEDS ORDERED: SUCCINYLCHOLINE CHLORIDE 200MG/10ML IV ONE ×2 (03:45→07:41)
[2021-10-21] MEDS ORDERED: MIDAZOLAM 100MG/100ML PMX 100 ML IV PRN (03:45)
[2021-10-21 04:25] LABS: BASOPHILS % 0.2 % (0.0-2.0); EOSINOPHILS % 0.3 % (0.0-5.0); HEMATOCRIT. 31.8 % (36.0-48.0); HEMOGLOBIN. 10.2 g/dL (12.0-16.0); LYMPHOCYTES % 21.7 % (20.0-50.0); MEAN CORPUSCULAR VOLUME 90.7 fL (81.0-99.0); MEAN PLATELET VOLUME 7.2 fl (7.4-10.4); MONOCYTES % 7.7 % (2.0-8.0); NEUTROPHILS % 70.1 % (40.0-76.0); PLATELET 448 x1000/uL (130-400); RED BLOOD CELL COUNT 3.51 mill/uL (4.2-5.4)
[2021-10-21 04:26] LABS: CHLORIDE 101 mEq/L (98-107)
[2021-10-21 04:27] LABS: INR 1.1; PROTHROMBIN TIME 12.1 sec (9.6-11.0)
[2021-10-21 04:30] LABS: ETHANOL BLOOD < 10 mg/dL
[2021-10-21] MEDS ORDERED: CEFEPIME 1,000 MG in DEXTROSE 5% WATER 50 ML IV STA (04:44)
[2021-10-21] MEDS ORDERED: VANCOMYCIN 1 G PREMIX 200 ML IV STA (04:44)
[2021-10-21 04:48] LABS: BG BASE EXCESS 8.5 mmol/L (-2.0-2.0); BG CARBOXYHEMOGLOBIN 0.3 % (0.5-1.5); BG DEOXYHEMOGLOBIN 5.9 % (0.0-5.0); BG FRACTION INSPIRED OXYGEN 100; BG HCO3 ACT 34.5 mmol/L (22.0-26.0); BG METHEMOGLOBIN 0.4 % (0.0-1.5); BG OXYGEN SATURATION 94.1 % (92.0-98.5); BG OXYHEMOGLOBIN 93.4 % (94.0-97.0); BG PCO2 55.5 mmHg (35.0-45.0); BG PH 7.411 (7.350-7.450); BG PO2 76.6 mmHg (75.0-100.0); BG SAMPLE SITE RIGHT RADIAL; BG TOTAL HEMOGLOBIN 10.1 g/dL (12.0-18.0); BG TOTAL RESPIRATORY RATE 18 b/min; BG VENT MODE VENT - AC
[2021-10-21 05:42] LABS: CLARITY URINE CLEAR (CLEAR); COLOR URINE YELLOW (YELLOW); KETONES URINE NEGATIVE (NEGATIVE); LEUKOCYTE ESTERASE URINE NEGATIVE (NEGATIVE); NITRITE URINE NEGATIVE (NEGATIVE); OCCULT BLOOD URINE NEGATIVE (NEGATIVE); PROTEIN URINE NEGATIVE (NEGATIVE); SPECIFIC GRAVITY URINE 1.018 (1.005-1.030); UROBILINOGEN URINE 0.2 E.U./dL (0.2-1.0)
[2021-10-21 06:56] LABS: *AMPHETAMINES SCREEN URINE NEGATIVE (NEGATIVE); *BARBITURATES SCREEN URINE NEGATIVE (NEGATIVE); *BENZODIAZEPINES SCREEN URINE NEGATIVE (NEGATIVE); *COCAINE SCREEN URINE NEGATIVE (NEGATIVE); METHADONE URINE SCREEN NEGATIVE (NEGATIVE)
[2021-10-21 06:57] LABS: CANNABINOID URINE SCREEN NEGATIVE (NEGATIVE); OPIATES URINE SCREEN PRESUMTIVE POSITIVE (NEGATIVE); PHENCYCLIDINE URINE SCREEN NEGATIVE (NEGATIVE)
[2021-10-21] MEDS ORDERED: MIDAZOLAM HCL 100 MG in SODIUM CHLORIDE 0.9% 80 ML IV PRN (14:15)
[2021-10-21] MEDS ORDERED: FENTANYL CITRATE/PF 2,500 MCG in SODIUM CHLORIDE 0.9% 200 ML IV PRN (14:15)
[2021-10-21] MEDS ORDERED: IPRATROPIUM/ALBUTEROL 0.5-3(2.5)MG/3ML NEB HHN PRN (14:15)
[2021-10-21] MEDS: FUROSEMIDE 40MG/4ML VIAL IVP SCH (15:25)
[2021-10-21] MEDS: CEFEPIME 2,000 MG in DEXT 5% WATER 100 ML IV SCH (15:25)
[2021-10-21] MEDS: MIDAZOLAM HCL 100 MG in SODIUM CHLORIDE 0.9% 80 ML IV PRN (18:45)
[2021-10-22] VITALS (54 sets, daily range): BP systolic 103–130; BP diastolic 43–74
[2021-10-22] MEDS: IPRATROPIUM/ALBUTEROL 0.5-3(2.5)MG/3ML NEB HHN SCH ×6 (00:28→23:49)
[2021-10-22] MEDS ORDERED: MIDAZOLAM 100MG/100ML PREMIX IV PRN (02:45)
[2021-10-22] MEDS: CEFEPIME 2,000 MG in DEXT 5% WATER 100 ML IV SCH ×2 (06:09→18:37)
[2021-10-22 08:24] LABS: BG BASE EXCESS 6.3 mmol/L (-2.0-2.0); BG CARBOXYHEMOGLOBIN 0.1 % (0.5-1.5); BG DEOXYHEMOGLOBIN 4.5 % (0.0-5.0); BG HCO3 ACT 31.2 mmol/L (22.0-26.0); BG METHEMOGLOBIN 0.3 % (0.0-1.5); BG OXYGEN SATURATION 95.5 % (92.0-98.5); BG OXYHEMOGLOBIN 95.1 % (94.0-97.0); BG PCO2 46.6 mmHg (35.0-45.0); BG PH 7.443 (7.350-7.450); BG PO2 83.4 mmHg (75.0-100.0); BG SAMPLE SITE RIGHT RADIAL; BG TOTAL HEMOGLOBIN 9.4 g/dL (12.0-18.0); BG VENT MODE VENT - AC
[2021-10-22 09:49] LABS: BASOPHILS % 0.2 % (0.0-2.0); HEMATOCRIT. 28.5 % (36.0-48.0); HEMOGLOBIN. 9.2 g/dL (12.0-16.0); LYMPHOCYTES % 14.5 % (20.0-50.0); MEAN CORPUSCULAR HEMOGLOBIN 28.5 pg (28.0-32.0); MEAN CORPUSCULAR VOLUME 88.1 fL (81.0-99.0); MEAN PLATELET VOLUME 7.3 fl (7.4-10.4); MONOCYTES % 6.9 % (2.0-8.0); NEUTROPHILS % 78.4 % (40.0-76.0); PLATELET 344 x1000/uL (130-400); RED BLOOD CELL COUNT 3.24 mill/uL (4.2-5.4); RED CELL DISTRIBUTION WIDTH 17.8 % (11.6-14.6)
[2021-10-22] MEDS: FUROSEMIDE 40MG/4ML VIAL IVP SCH ×2 (09:49→17:39)
[2021-10-22] MEDS: PANTOPRAZOLE SODIUM 40 MG/VIAL IV SCH (09:49)
[2021-10-22 09:57] LABS: CHLORIDE 103 mEq/L (98-107)
[2021-10-22] MEDS ORDERED: IOHEXOL-350 100 ML BOTTLE ONE (10:25)
[2021-10-22] MEDS: ENOXAPARIN 40MG/0.4ML SYR SUBCUT SCH (13:15)
[2021-10-22] MEDS: FENTANYL CITRATE/PF 2,500 MCG in SODIUM CHLORIDE 0.9% 200 ML IV PRN (14:29)
[2021-10-22] MEDS: MIDAZOLAM HCL 100 MG in SODIUM CHLORIDE 0.9% 80 ML IV PRN ×2 (18:35→21:16)
[2021-10-23] VITALS (96 sets, daily range): BP systolic 93–145; BP diastolic 45–85
[2021-10-23] MEDS: MIDAZOLAM HCL 100 MG in SODIUM CHLORIDE 0.9% 80 ML IV PRN ×2 (04:23→15:43)
[2021-10-23 06:27] LABS: CHLORIDE 100 mEq/L (98-107)
[2021-10-23] MEDS: FENTANYL CITRATE/PF 2,500 MCG in SODIUM CHLORIDE 0.9% 200 ML IV PRN ×2 (06:39→23:19)
[2021-10-23] MEDS: CEFEPIME 2,000 MG in DEXT 5% WATER 100 ML IV SCH ×2 (06:40→17:33)
[2021-10-23] MEDS: FUROSEMIDE 40MG/4ML VIAL IVP SCH ×2 (07:00→17:33)
[2021-10-23 07:30] LABS: BASOPHILS % 0.2 % (0.0-2.0); EOSINOPHILS % 0.3 % (0.0-5.0); HEMATOCRIT. 30.3 % (36.0-48.0); LYMPHOCYTES % 22.6 % (20.0-50.0); MEAN CORPUSCULAR HEMOGLOBIN 29.6 pg (28.0-32.0); MEAN CORPUSCULAR VOLUME 89.1 fL (81.0-99.0); MEAN PLATELET VOLUME 8.1 fl (7.4-10.4); MONOCYTES % 8.6 % (2.0-8.0); NEUTROPHILS % 68.3 % (40.0-76.0); PLATELET 331 x1000/uL (130-400); RED CELL DISTRIBUTION WIDTH 17.9 % (11.6-14.6)
[2021-10-23 08:37] LABS: BG CARBOXYHEMOGLOBIN 0.2 % (0.5-1.5); BG DEOXYHEMOGLOBIN 7.6 % (0.0-5.0); BG FRACTION INSPIRED OXYGEN 100; BG HCO3 ACT 37.9 mmol/L (22.0-26.0); BG METHEMOGLOBIN 0.4 % (0.0-1.5); BG OXYGEN SATURATION 92.4 % (92.0-98.5); BG OXYHEMOGLOBIN 91.8 % (94.0-97.0); BG PCO2 44.5 mmHg (35.0-45.0); BG PH 7.548 (7.350-7.450); BG PO2 62.2 mmHg (75.0-100.0); BG SAMPLE SITE LEFT RADIAL; BG TOTAL RESPIRATORY RATE 20 b/min; BG VENT MODE VENT - AC
[2021-10-23] MEDS: IPRATROPIUM/ALBUTEROL 0.5-3(2.5)MG/3ML NEB HHN SCH ×4 (09:00→20:23)
[2021-10-23] MEDS: ENOXAPARIN 40MG/0.4ML SYR SUBCUT SCH (10:19)
[2021-10-23] MEDS: POTASSIUM CHLORIDE 20MEQ TABLET SR PO SCH (10:19)
[2021-10-23] MEDS: PANTOPRAZOLE SODIUM 40 MG/VIAL IV SCH (10:53)
[2021-10-23] MEDS ORDERED: MAGNESIUM 2 G PREMIX 50 ML IV SCH (14:00)
[2021-10-23] MEDS ORDERED: DILTIAZEM HCL 5MG/ML 5ML VIAL IV SCH (15:00)
[2021-10-23] MEDS: ENOXAPARIN 30MG/0.3ML SYR SUBCUT SCH (21:53)
[2021-10-23] MEDS: ACETAMINOPHEN 650MG/20.3ML UDC PO PRN (21:59)
[2021-10-24] VITALS (45 sets, daily range): BP systolic 89–148; BP diastolic 53–90
[2021-10-24] MEDS: IPRATROPIUM/ALBUTEROL 0.5-3(2.5)MG/3ML NEB HHN SCH ×5 (00:13→20:14)
[2021-10-24] MEDS: MIDAZOLAM HCL 100 MG in SODIUM CHLORIDE 0.9% 80 ML IV PRN (02:19)
[2021-10-24] MEDS: CEFEPIME 2,000 MG in DEXT 5% WATER 100 ML IV SCH ×2 (05:23→17:27)
[2021-10-24 05:53] LABS: BASOPHILS % 0.3 % (0.0-2.0); EOSINOPHILS % 0.7 % (0.0-5.0); HEMATOCRIT. 33.5 % (36.0-48.0); HEMOGLOBIN. 10.9 g/dL (12.0-16.0); LYMPHOCYTES % 28.8 % (20.0-50.0); MEAN CORPUSCULAR HEMOGLOBIN 28.8 pg (28.0-32.0); MEAN CORPUSCULAR VOLUME 88.7 fL (81.0-99.0); MEAN PLATELET VOLUME 7.2 fl (7.4-10.4); MONOCYTES % 10.5 % (2.0-8.0); NEUTROPHILS % 59.7 % (40.0-76.0); PLATELET 356 x1000/uL (130-400); RED BLOOD CELL COUNT 3.78 mill/uL (4.2-5.4); RED CELL DISTRIBUTION WIDTH 18.2 % (11.6-14.6)
[2021-10-24 06:10] LABS: PHOSPHORUS 4.2 mg/dL (2.5-4.9)
[2021-10-24] MEDS: FUROSEMIDE 40MG/4ML VIAL IVP SCH ×2 (08:03→17:27)
[2021-10-24] MEDS: PANTOPRAZOLE SODIUM 40 MG/VIAL IV SCH (08:42)
[2021-10-24] MEDS: POTASSIUM CHLORIDE 20MEQ TABLET SR PO SCH (08:42)
[2021-10-24] MEDS: ENOXAPARIN 30MG/0.3ML SYR SUBCUT SCH ×2 (08:43→20:30)
[2021-10-24 08:47] LABS: BG BASE EXCESS 12.3 mmol/L (-2.0-2.0); BG CARBOXYHEMOGLOBIN 0.3 % (0.5-1.5); BG DEOXYHEMOGLOBIN 4.4 % (0.0-5.0); BG FRACTION INSPIRED OXYGEN 90; BG HCO3 ACT 37.6 mmol/L (22.0-26.0); BG METHEMOGLOBIN 0.1 % (0.0-1.5); BG OXYGEN SATURATION 95.6 % (92.0-98.5); BG OXYHEMOGLOBIN 95.2 % (94.0-97.0); BG PH 7.477 (7.350-7.450); BG PO2 83.4 mmHg (75.0-100.0); BG SAMPLE SITE LEFT RADIAL; BG TOTAL HEMOGLOBIN 11.2 g/dL (12.0-18.0); BG TOTAL RESPIRATORY RATE 16 b/min; BG VENT MODE VENT - AC
[2021-10-24] MEDS ORDERED: MAGNESIUM 2 G PREMIX 50 ML IV SCH (12:00)
[2021-10-24] MEDS: ACETAMINOPHEN 650MG/20.3ML UDC PO PRN ×2 (14:07→20:57)
[2021-10-24] MEDS: ACETYLCYSTEINE 100MG/ML 10% VIAL 4ML INH SCH (17:36)
[2021-10-24] MEDS: METOPROLOL TARTRATE 50MG TABLET PO SCH (21:17)
[2021-10-24] MEDS: FENTANYL CITRATE/PF 2,500 MCG in SODIUM CHLORIDE 0.9% 200 ML IV PRN (22:36)
[2021-10-25] VITALS (97 sets, daily range): BP systolic 94–151; BP diastolic 44–94
[2021-10-25] MEDS: IPRATROPIUM/ALBUTEROL 0.5-3(2.5)MG/3ML NEB HHN SCH ×6 (00:22→20:43)
[2021-10-25 05:28] LABS: BASOPHILS % 0.4 % (0.0-2.0); EOSINOPHILS % 1.3 % (0.0-5.0); HEMATOCRIT. 34.9 % (36.0-48.0); HEMOGLOBIN. 11.4 g/dL (12.0-16.0); MEAN CORPUSCULAR HEMOGLOBIN 28.9 pg (28.0-32.0); MEAN CORPUSCULAR VOLUME 88.3 fL (81.0-99.0); MEAN PLATELET VOLUME 7.7 fl (7.4-10.4); MONOCYTES % 10.9 % (2.0-8.0); NEUTROPHILS % 70.4 % (40.0-76.0); PLATELET 318 x1000/uL (130-400); RED BLOOD CELL COUNT 3.95 mill/uL (4.2-5.4)
[2021-10-25] MEDS: CEFEPIME 2,000 MG in DEXT 5% WATER 100 ML IV SCH ×2 (06:26→18:41)
[2021-10-25] MEDS ORDERED: POTASSIUM CHLORIDE INJ 60 MEQ in DEXT 5% WATER 500 ML IV ONE (06:30)
[2021-10-25] MEDS: FUROSEMIDE 40MG/4ML VIAL IVP SCH ×2 (06:42→17:18)
[2021-10-25 08:21] LABS: BG BASE EXCESS 15.2 mmol/L (-2.0-2.0); BG CARBOXYHEMOGLOBIN 0.6 % (0.5-1.5); BG DEOXYHEMOGLOBIN 2.1 % (0.0-5.0); BG FRACTION INSPIRED OXYGEN 90; BG HCO3 ACT 41.1 mmol/L (22.0-26.0); BG METHEMOGLOBIN 0.4 % (0.0-1.5); BG OXYGEN SATURATION 97.9 % (92.0-98.5); BG OXYHEMOGLOBIN 96.9 % (94.0-97.0); BG PCO2 55.4 mmHg (35.0-45.0); BG PH 7.488 (7.350-7.450); BG PO2 100.4 mmHg (75.0-100.0); BG SAMPLE SITE RIGHT RADIAL; BG TOTAL HEMOGLOBIN 12.8 g/dL (12.0-18.0); BG TOTAL RESPIRATORY RATE 16 b/min; BG VENT MODE VENT - AC
[2021-10-25] MEDS: KCL 20MEQ/100ML PREMIX 100 ML IV SCH ×4 (08:35→14:12)
[2021-10-25] MEDS: ACETYLCYSTEINE 100MG/ML 10% VIAL 4ML INH SCH ×2 (09:49→15:00)
[2021-10-25] MEDS: METOPROLOL TARTRATE 50MG TABLET PO SCH ×2 (09:58→21:00)
[2021-10-25] MEDS: POTASSIUM CHLORIDE 20MEQ TABLET SR PO SCH (09:59)
[2021-10-25] MEDS: PANTOPRAZOLE SODIUM 40 MG/VIAL IV SCH (09:59)
[2021-10-25] MEDS: ENOXAPARIN 30MG/0.3ML SYR SUBCUT SCH ×2 (09:59→21:00)
[2021-10-25] MEDS: MIDAZOLAM HCL 100 MG in SODIUM CHLORIDE 0.9% 80 ML IV PRN (14:13)
[2021-10-25] MEDS ORDERED: MAGNESIUM 2 G PREMIX 50 ML IV SCH (15:00)
[2021-10-25] MEDS: FENTANYL CITRATE/PF 2,500 MCG in SODIUM CHLORIDE 0.9% 200 ML IV PRN (16:46)
[2021-10-25] MEDS: ACETAMINOPHEN 650MG/20.3ML UDC PO PRN (21:00)
[2021-10-25] MEDS: ONDANSETRON HCL 4MG/2ML INJ IV PRN (21:00)
[2021-10-26] VITALS (88 sets, daily range): BP systolic 11–144; BP diastolic 58–99
[2021-10-26] MEDS: ACETYLCYSTEINE 100MG/ML 10% VIAL 4ML INH SCH ×2 (00:41→08:02)
[2021-10-26] MEDS: IPRATROPIUM/ALBUTEROL 0.5-3(2.5)MG/3ML NEB HHN SCH ×6 (00:41→21:06)
[2021-10-26] MEDS: MIDAZOLAM HCL 100 MG in SODIUM CHLORIDE 0.9% 80 ML IV PRN ×2 (00:48→14:49)
[2021-10-26] MEDS: CEFEPIME 2,000 MG in DEXT 5% WATER 100 ML IV SCH (05:48)
[2021-10-26] MEDS: FENTANYL CITRATE/PF 2,500 MCG in SODIUM CHLORIDE 0.9% 200 ML IV PRN ×2 (05:49→18:56)
[2021-10-26 05:57] LABS: BASOPHILS % 0.4 % (0.0-2.0); EOSINOPHILS % 1.6 % (0.0-5.0); HEMATOCRIT. 34.2 % (36.0-48.0); LYMPHOCYTES % 20.4 % (20.0-50.0); MEAN CORPUSCULAR HEMOGLOBIN 28.2 pg (28.0-32.0); MEAN CORPUSCULAR VOLUME 87.4 fL (81.0-99.0); MONOCYTES % 9.9 % (2.0-8.0); NEUTROPHILS % 67.7 % (40.0-76.0); PLATELET 313 x1000/uL (130-400); RED BLOOD CELL COUNT 3.91 mill/uL (4.2-5.4); RED CELL DISTRIBUTION WIDTH 17.9 % (11.6-14.6)
[2021-10-26 06:08] LABS: PHOSPHORUS 3.6 mg/dL (2.5-4.9)
[2021-10-26] MEDS: FUROSEMIDE 40MG/4ML VIAL IVP SCH ×2 (06:42→16:10)
[2021-10-26] MEDS ORDERED: LIDOCAINE HCL 1% 20ML VIAL (Pyxis) INJ ONE (07:59)
[2021-10-26] MEDS: PANTOPRAZOLE SODIUM 40 MG/VIAL IV SCH (09:14)
[2021-10-26] MEDS: ENOXAPARIN 30MG/0.3ML SYR SUBCUT SCH ×2 (09:15→21:55)
[2021-10-26] MEDS: POTASSIUM CHLORIDE 20MEQ TABLET SR PO SCH (09:15)
[2021-10-26] MEDS: METOPROLOL TARTRATE 50MG TABLET PO SCH ×2 (09:15→21:55)
[2021-10-26] MEDS: BISACODYL 5MG TABLET PO PRN (09:15)
[2021-10-26 10:46] LABS: BG BASE EXCESS 9.7 mmol/L (-2.0-2.0); BG CARBOXYHEMOGLOBIN 0.6 % (0.5-1.5); BG DEOXYHEMOGLOBIN 0.8 % (0.0-5.0); BG FRACTION INSPIRED OXYGEN 100; BG HCO3 ACT 34.9 mmol/L (22.0-26.0); BG METHEMOGLOBIN 0.3 % (0.0-1.5); BG OXYGEN SATURATION 99.2 % (92.0-98.5); BG OXYHEMOGLOBIN 98.3 % (94.0-97.0); BG PCO2 49.9 mmHg (35.0-45.0); BG PH 7.463 (7.350-7.450); BG PO2 165.4 mmHg (75.0-100.0); BG SAMPLE SITE RIGHT RADIAL; BG VENT MODE VENT - AC
[2021-10-26] MEDS: ONDANSETRON HCL 4MG/2ML INJ IV PRN (21:55)
[2021-10-26] MEDS: ACETAMINOPHEN 650MG/20.3ML UDC PO PRN (21:55)
[2021-10-27] VITALS (91 sets, daily range): BP systolic 81–135; BP diastolic 52–90
[2021-10-27] MEDS: IPRATROPIUM/ALBUTEROL 0.5-3(2.5)MG/3ML NEB HHN SCH ×6 (00:13→20:00)
[2021-10-27] MEDS: ACETYLCYSTEINE 100MG/ML 10% VIAL 4ML INH SCH ×3 (00:13→15:39)
[2021-10-27 06:03] LABS: BASOPHILS % 0.3 % (0.0-2.0); EOSINOPHILS % 1.8 % (0.0-5.0); HEMATOCRIT. 31.1 % (36.0-48.0); HEMOGLOBIN. 10.1 g/dL (12.0-16.0); LYMPHOCYTES % 26.3 % (20.0-50.0); MEAN CORPUSCULAR HEMOGLOBIN 28.6 pg (28.0-32.0); MEAN CORPUSCULAR VOLUME 87.6 fL (81.0-99.0); MEAN PLATELET VOLUME 8.7 fl (7.4-10.4); MONOCYTES % 10.7 % (2.0-8.0); NEUTROPHILS % 60.9 % (40.0-76.0); PLATELET 261 x1000/uL (130-400); RED BLOOD CELL COUNT 3.55 mill/uL (4.2-5.4); RED CELL DISTRIBUTION WIDTH 18.4 % (11.6-14.6)
[2021-10-27] MEDS: METOPROLOL TARTRATE 50MG TABLET PO SCH ×2 (08:51→22:44)
[2021-10-27] MEDS: PANTOPRAZOLE SODIUM 40 MG/VIAL IV SCH (08:51)
[2021-10-27] MEDS: ENOXAPARIN 30MG/0.3ML SYR SUBCUT SCH ×2 (08:52→22:44)
[2021-10-27] MEDS: POTASSIUM CHLORIDE 20MEQ/PACKET PO SCH (08:52)
[2021-10-27] MEDS: MIDAZOLAM HCL 100 MG in SODIUM CHLORIDE 0.9% 80 ML IV PRN ×2 (08:54→23:42)
[2021-10-27] MEDS: FUROSEMIDE 40MG/4ML VIAL IVP SCH ×2 (09:16→16:19)
[2021-10-27 09:53] LABS: BG BASE EXCESS 12.2 mmol/L (-2.0-2.0); BG CARBOXYHEMOGLOBIN 0.4 % (0.5-1.5); BG DEOXYHEMOGLOBIN 16.5 % (0.0-5.0); BG FRACTION INSPIRED OXYGEN 70; BG HCO3 ACT 36.7 mmol/L (22.0-26.0); BG METHEMOGLOBIN 0.2 % (0.0-1.5); BG OXYGEN SATURATION 83.4 % (92.0-98.5); BG OXYHEMOGLOBIN 82.9 % (94.0-97.0); BG PCO2 47.5 mmHg (35.0-45.0); BG PH 7.506 (7.350-7.450); BG PO2 49.4 mmHg (75.0-100.0); BG SAMPLE SITE RIGHT RADIAL; BG TOTAL HEMOGLOBIN 11.3 g/dL (12.0-18.0); BG VENT MODE VENT - AC
[2021-10-27] MEDS: FENTANYL CITRATE/PF 2,500 MCG in SODIUM CHLORIDE 0.9% 200 ML IV PRN (14:00)
[2021-10-27] MEDS: MEROPENEM 1,000 MG in SODIUM CHLORIDE 0.9% 100 ML IV SCH ×2 (15:00→22:44)
[2021-10-27] MEDS ORDERED: VANCOMYCIN 1,750 MG in DEXT 5% WATER 250 ML IV NR (16:00)
[2021-10-27] MEDS: BISACODYL 5MG TABLET PO PRN (16:20)
[2021-10-27] MEDS: ACETAMINOPHEN 650MG/20.3ML UDC NG PRN ×2 (17:54→23:02)
[2021-10-27] MEDS ORDERED: MIDAZOLAM 100MG/100ML PMX 100 ML IV PRN (18:15)
[2021-10-28] VITALS (97 sets, daily range): BP systolic 89–148; BP diastolic 21–119
[2021-10-28] MEDS: ACETYLCYSTEINE 100MG/ML 10% VIAL 4ML INH SCH ×3 (00:16→15:53)
[2021-10-28] MEDS: IPRATROPIUM/ALBUTEROL 0.5-3(2.5)MG/3ML NEB HHN SCH ×6 (00:16→21:31)
[2021-10-28 06:30] LABS: BASOPHILS % 0.7 % (0.0-2.0); EOSINOPHILS % 1.9 % (0.0-5.0); HEMATOCRIT. 31.1 % (36.0-48.0); LYMPHOCYTES % 25.7 % (20.0-50.0); MEAN CORPUSCULAR HEMOGLOBIN 28.3 pg (28.0-32.0); MEAN CORPUSCULAR VOLUME 88.4 fL (81.0-99.0); MEAN PLATELET VOLUME 8.3 fl (7.4-10.4); MONOCYTES % 10.3 % (2.0-8.0); NEUTROPHILS % 61.4 % (40.0-76.0); PLATELET 296 x1000/uL (130-400); RED BLOOD CELL COUNT 3.52 mill/uL (4.2-5.4); RED CELL DISTRIBUTION WIDTH 17.9 % (11.6-14.6)
[2021-10-28] MEDS: MEROPENEM 1,000 MG in SODIUM CHLORIDE 0.9% 100 ML IV SCH ×3 (06:56→22:06)
[2021-10-28] MEDS ORDERED: LIDOCAINE HCL 1% 20ML VIAL (Pyxis) INJ ONE (08:05)
[2021-10-28] MEDS: FUROSEMIDE 40MG/4ML VIAL IVP SCH (08:13)
[2021-10-28] MEDS: POTASSIUM CHLORIDE 20MEQ/PACKET PO SCH (08:13)
[2021-10-28] MEDS: PANTOPRAZOLE SODIUM 40 MG/VIAL IV SCH (08:13)
[2021-10-28 09:16] LABS: BG BASE EXCESS 8.2 mmol/L (-2.0-2.0); BG CARBOXYHEMOGLOBIN 0.3 % (0.5-1.5); BG DEOXYHEMOGLOBIN 1.1 % (0.0-5.0); BG FRACTION INSPIRED OXYGEN 90; BG HCO3 ACT 33.9 mmol/L (22.0-26.0); BG METHEMOGLOBIN 0.3 % (0.0-1.5); BG OXYGEN SATURATION 98.9 % (92.0-98.5); BG OXYHEMOGLOBIN 98.3 % (94.0-97.0); BG PCO2 52.7 mmHg (35.0-45.0); BG PH 7.426 (7.350-7.450); BG PO2 150.3 mmHg (75.0-100.0); BG SAMPLE SITE RIGHT RADIAL; BG TOTAL HEMOGLOBIN 10.6 g/dL (12.0-18.0); BG VENT MODE VENT - AC
[2021-10-28] MEDS: ENOXAPARIN 30MG/0.3ML SYR SUBCUT SCH ×2 (10:06→22:05)
[2021-10-28] MEDS: METOPROLOL TARTRATE 50MG TABLET PO SCH ×2 (10:07→22:05)
[2021-10-28] MEDS: MIDAZOLAM HCL 100 MG in SODIUM CHLORIDE 0.9% 100 ML IV PRN ×2 (10:16→23:09)
[2021-10-28] MEDS: FENTANYL CITRATE/PF 2,500 MCG in SODIUM CHLORIDE 0.9% 200 ML IV PRN ×2 (10:17→23:09)
[2021-10-28 10:22] LABS: CREATINE KINASE 11 IU/L (26-192)
[2021-10-28] MEDS ORDERED: VANCOMYCIN 1 G PREMIX 200 ML IV SCH (13:00)
[2021-10-29] VITALS (60 sets, daily range): BP systolic 111–159; BP diastolic 64–113
[2021-10-29] MEDS: ACETYLCYSTEINE 100MG/ML 10% VIAL 4ML INH SCH ×2 (01:10→08:07)
[2021-10-29] MEDS: IPRATROPIUM/ALBUTEROL 0.5-3(2.5)MG/3ML NEB HHN SCH ×6 (01:10→20:26)
[2021-10-29] MEDS: ACETAMINOPHEN 650MG/20.3ML UDC NG PRN ×2 (05:11→20:37)
[2021-10-29] MEDS: MEROPENEM 1,000 MG in SODIUM CHLORIDE 0.9% 100 ML IV SCH ×3 (05:14→21:13)
[2021-10-29 06:10] LABS: BASOPHILS % 0.8 % (0.0-2.0); EOSINOPHILS % 3.1 % (0.0-5.0); HEMOGLOBIN. 10.3 g/dL (12.0-16.0); LYMPHOCYTES % 27.3 % (20.0-50.0); MEAN CORPUSCULAR HEMOGLOBIN 28.2 pg (28.0-32.0); MEAN CORPUSCULAR VOLUME 87.4 fL (81.0-99.0); MEAN PLATELET VOLUME 8.1 fl (7.4-10.4); MONOCYTES % 11.1 % (2.0-8.0); NEUTROPHILS % 57.7 % (40.0-76.0); PLATELET 292 x1000/uL (130-400); RED BLOOD CELL COUNT 3.66 mill/uL (4.2-5.4); RED CELL DISTRIBUTION WIDTH 17.5 % (11.6-14.6)
[2021-10-29 08:01] LABS: BG BASE EXCESS 8.1 mmol/L (-2.0-2.0); BG CARBOXYHEMOGLOBIN 0.7 % (0.5-1.5); BG DEOXYHEMOGLOBIN 7.2 % (0.0-5.0); BG HCO3 ACT 32.3 mmol/L (22.0-26.0); BG METHEMOGLOBIN 0.2 % (0.0-1.5); BG OXYGEN SATURATION 92.7 % (92.0-98.5); BG OXYHEMOGLOBIN 91.9 % (94.0-97.0); BG PCO2 43.1 mmHg (35.0-45.0); BG PH 7.492 (7.350-7.450); BG PO2 64.2 mmHg (75.0-100.0); BG SAMPLE SITE RIGHT RADIAL; BG TOTAL HEMOGLOBIN 10.8 g/dL (12.0-18.0); BG VENT MODE VENT - SIMV
[2021-10-29 09:32] LABS: BG BASE EXCESS 8.5 mmol/L (-2.0-2.0); BG CARBOXYHEMOGLOBIN 0.3 % (0.5-1.5); BG DEOXYHEMOGLOBIN 8.4 % (0.0-5.0); BG HCO3 ACT 32.7 mmol/L (22.0-26.0); BG METHEMOGLOBIN 0.2 % (0.0-1.5); BG OXYGEN SATURATION 91.6 % (92.0-98.5); BG OXYHEMOGLOBIN 91.1 % (94.0-97.0); BG PCO2 43.8 mmHg (35.0-45.0); BG PH 7.491 (7.350-7.450); BG PO2 62.6 mmHg (75.0-100.0); BG SAMPLE SITE RIGHT RADIAL; BG TOTAL HEMOGLOBIN 11.3 g/dL (12.0-18.0); BG VENT MODE VENT - CPAP
[2021-10-29] MEDS: PANTOPRAZOLE SODIUM 40 MG/VIAL IV SCH (10:03)
[2021-10-29] MEDS: METOPROLOL TARTRATE 50MG TABLET PO SCH ×2 (10:03→20:17)
[2021-10-29] MEDS: POTASSIUM CHLORIDE 20MEQ/PACKET PO SCH (10:04)
[2021-10-29] MEDS: ENOXAPARIN 30MG/0.3ML SYR SUBCUT SCH ×2 (10:04→20:18)
[2021-10-29] MEDS: VANCOMYCIN 1250MG in DEXTROSE 5% WATER 250ML IV SCH (14:47)
[2021-10-29] MEDS: ONDANSETRON HCL 4MG/2ML INJ IV PRN (21:00)
[2021-10-30] VITALS (31 sets, daily range): BP systolic 115–178; BP diastolic 33–95
[2021-10-30] MEDS: IPRATROPIUM/ALBUTEROL 0.5-3(2.5)MG/3ML NEB HHN SCH ×5 (00:19→20:55)
[2021-10-30] MEDS: ACETAMINOPHEN 650MG/20.3ML UDC NG PRN ×3 (02:30→20:22)
[2021-10-30] MEDS: ONDANSETRON HCL 4MG/2ML INJ IV PRN ×2 (02:55→20:22)
[2021-10-30] MEDS: MEROPENEM 1,000 MG in SODIUM CHLORIDE 0.9% 100 ML IV SCH ×3 (05:01→22:31)
[2021-10-30] MEDS: VANCOMYCIN 1250MG in DEXTROSE 5% WATER 250ML IV SCH (06:08)
[2021-10-30 06:11] LABS: BASOPHILS % 0.7 % (0.0-2.0); EOSINOPHILS % 1.1 % (0.0-5.0); HEMATOCRIT. 32.5 % (36.0-48.0); HEMOGLOBIN. 10.7 g/dL (12.0-16.0); LYMPHOCYTES % 30.8 % (20.0-50.0); MEAN CORPUSCULAR HEMOGLOBIN 28.5 pg (28.0-32.0); MEAN CORPUSCULAR VOLUME 86.8 fL (81.0-99.0); MEAN PLATELET VOLUME 8.3 fl (7.4-10.4); MONOCYTES % 9.2 % (2.0-8.0); NEUTROPHILS % 58.2 % (40.0-76.0); PLATELET 288 x1000/uL (130-400); RED BLOOD CELL COUNT 3.74 mill/uL (4.2-5.4); RED CELL DISTRIBUTION WIDTH 18.1 % (11.6-14.6)
[2021-10-30 06:20] LABS: CHLORIDE 114 mEq/L (98-107)
[2021-10-30 06:41] LABS: PHOSPHORUS 2.4 mg/dL (2.5-4.9)
[2021-10-30] MEDS: PANTOPRAZOLE SODIUM 40 MG/VIAL IV SCH (08:31)
[2021-10-30] MEDS: POTASSIUM CHLORIDE 20MEQ/PACKET PO SCH (08:31)
[2021-10-30] MEDS: ENOXAPARIN 30MG/0.3ML SYR SUBCUT SCH ×2 (08:32→20:22)
[2021-10-30] MEDS: METOPROLOL TARTRATE 50MG TABLET PO SCH ×2 (08:32→20:22)
[2021-10-30] MEDS ORDERED: POTASSIUM PHOS,M-BASIC-D-BASIC 20 MMOL in DEXT 5% WATER 243.3333 ML IV SCH (09:00)
[2021-10-30] MEDS: GABAPENTIN 300MG CAPSULE PO SCH ×3 (11:18→22:31)
[2021-10-31] VITALS (10 sets, daily range): BP systolic 108–138; BP diastolic 66–109
[2021-10-31] MEDS: IPRATROPIUM/ALBUTEROL 0.5-3(2.5)MG/3ML NEB HHN SCH ×7 (00:43→23:56)
[2021-10-31] MEDS: ONDANSETRON HCL 4MG/2ML INJ IV PRN (02:34)
[2021-10-31] MEDS: ACETAMINOPHEN 650MG/20.3ML UDC NG PRN (02:34)
[2021-10-31] MEDS: GABAPENTIN 300MG CAPSULE PO SCH ×3 (05:16→20:13)
[2021-10-31] MEDS: MEROPENEM 1,000 MG in SODIUM CHLORIDE 0.9% 100 ML IV SCH ×3 (05:16→20:13)
[2021-10-31 06:42] LABS: CHLORIDE 111 mEq/L (98-107)
[2021-10-31 06:43] LABS: BASOPHILS % 0.7 % (0.0-2.0); EOSINOPHILS % 2.3 % (0.0-5.0); HEMATOCRIT. 31.1 % (36.0-48.0); HEMOGLOBIN. 10.2 g/dL (12.0-16.0); LYMPHOCYTES % 42.5 % (20.0-50.0); MEAN CORPUSCULAR HEMOGLOBIN 28.6 pg (28.0-32.0); MEAN CORPUSCULAR VOLUME 86.7 fL (81.0-99.0); MEAN PLATELET VOLUME 8.2 fl (7.4-10.4); MONOCYTES % 7.7 % (2.0-8.0); NEUTROPHILS % 46.8 % (40.0-76.0); PLATELET 275 x1000/uL (130-400); RED BLOOD CELL COUNT 3.58 mill/uL (4.2-5.4); RED CELL DISTRIBUTION WIDTH 17.9 % (11.6-14.6)
[2021-10-31] MEDS: PANTOPRAZOLE SODIUM 40 MG/VIAL IV SCH (09:06)
[2021-10-31] MEDS: METOPROLOL TARTRATE 50MG TABLET PO SCH ×2 (09:06→20:14)
[2021-10-31] MEDS: POTASSIUM CHLORIDE 20MEQ/PACKET PO SCH (09:06)
[2021-10-31] MEDS: ENOXAPARIN 30MG/0.3ML SYR SUBCUT SCH ×2 (09:07→20:14)
[2021-10-31] MEDS: TRAMADOL 50MG TABLET PO PRN ×2 (13:11→22:03)
[2021-10-31] MEDS: VANCOMYCIN 1 G PREMIX 200 ML IV SCH (14:53)
[2021-10-31] MEDS: ACETAMINOPHEN 325MG TABLET PO PRN (17:24)
[2021-10-31] MEDS: ZOLPIDEM TARTRATE 5MG TABLET PO PRN (20:13)
[2021-11-01] VITALS (10 sets, daily range): BP systolic 109–161; BP diastolic 54–96
[2021-11-01] MEDS: ACETAMINOPHEN 325MG TABLET PO PRN ×3 (00:14→15:48)
[2021-11-01] MEDS: IPRATROPIUM/ALBUTEROL 0.5-3(2.5)MG/3ML NEB HHN SCH ×5 (04:10→21:05)
[2021-11-01] MEDS: MEROPENEM 1,000 MG in SODIUM CHLORIDE 0.9% 100 ML IV SCH (05:39)
[2021-11-01] MEDS: GABAPENTIN 300MG CAPSULE PO SCH ×3 (05:39→21:16)
[2021-11-01] MEDS: TRAMADOL 50MG TABLET PO PRN ×4 (05:40→21:16)
[2021-11-01] MEDS: ENOXAPARIN 30MG/0.3ML SYR SUBCUT SCH ×2 (09:19→21:15)
[2021-11-01] MEDS: POTASSIUM CHLORIDE 20MEQ/PACKET PO SCH (09:20)
[2021-11-01] MEDS: METOPROLOL TARTRATE 50MG TABLET PO SCH ×2 (09:20→21:15)
[2021-11-01] MEDS: PANTOPRAZOLE SODIUM 40 MG/VIAL IV SCH (09:20)
[2021-11-01] MEDS ORDERED: KETOROLAC 15MG/ML VIAL IV SCH (10:00)
[2021-11-01] MEDS: ONDANSETRON HCL 4MG/2ML INJ IV PRN ×2 (14:05→21:15)
[2021-11-01] MEDS: VANCOMYCIN 1 G PREMIX 200 ML IV SCH (14:05)
[2021-11-01] MEDS ORDERED: MAGNESIUM/ALUMINUM HYDROXIDE/SIMETHICONE 30ML UDC PO PRN (14:30)
[2021-11-01] MEDS: ZOLPIDEM TARTRATE 5MG TABLET PO PRN (21:16)
[2021-11-02] VITALS: BP 111/67
[2021-11-02] MEDS: ACETAMINOPHEN 325MG TABLET PO PRN (02:01)
[2021-11-02] MEDS: TRAMADOL 50MG TABLET PO PRN ×2 (03:27→08:23)
[2021-11-02 03:31] VITALS: BP 118/67
[2021-11-02] MEDS: GABAPENTIN 300MG CAPSULE PO SCH ×2 (05:08→13:09)
[2021-11-02 07:13] LABS: CHLORIDE 110 mEq/L (98-107)
[2021-11-02 07:16] LABS: BASOPHILS % 0.9 % (0.0-2.0); EOSINOPHILS % 6.2 % (0.0-5.0); HEMOGLOBIN. 10.1 g/dL (12.0-16.0); LYMPHOCYTES % 35.6 % (20.0-50.0); MEAN CORPUSCULAR VOLUME 85.9 fL (81.0-99.0); MEAN PLATELET VOLUME 8.2 fl (7.4-10.4); MONOCYTES % 7.4 % (2.0-8.0); NEUTROPHILS % 49.9 % (40.0-76.0); PLATELET 263 x1000/uL (130-400); RED BLOOD CELL COUNT 3.61 mill/uL (4.2-5.4)
[2021-11-02 08:00] VITALS: BP 104/41
[2021-11-02] MEDS: METOPROLOL TARTRATE 50MG TABLET PO SCH (08:23)
[2021-11-02] MEDS: POTASSIUM CHLORIDE 20MEQ/PACKET PO SCH (08:24)
[2021-11-02] MEDS: ENOXAPARIN 30MG/0.3ML SYR SUBCUT SCH (08:24)
[2021-11-02] MEDS: PANTOPRAZOLE SODIUM 40 MG/VIAL IV SCH (08:24)
[2021-11-02] MEDS: IPRATROPIUM/ALBUTEROL 0.5-3(2.5)MG/3ML NEB HHN SCH ×3 (09:44→12:38)
[2021-11-02] MEDS: ACETAMINOPHEN 650MG/20.3ML UDC NG PRN (11:49)
[2021-11-02 12:00] VITALS: BP 128/80
[2021-11-02 12:38] VITALS: BP 128/80
== END 2021-11-02 19:14 | disposition home or self-care (01) | DRG 720 ==
LOC: ER 02:27 → MICUNO 05:54 → ENRESERV 10-22 09:06 → 5EST 10-30 13:50
PROVIDERS: ADMIT Internal Medicine; ATTEND Internal Medicine
PROC: 5A1955Z Respiratory Ventilation, Greater than 96 Consecutive Hours (ICD-10-PCS; principal; 2021-10-21)
PROC: 0BH17EZ Insertion of Endotracheal Airway into Trachea, Via Natural or Artificial Opening (ICD-10-PCS; 2021-10-21)
PROC: B54BZZA Ultrasonography of Right Lower Extremity Veins, Guidance (ICD-10-PCS; 2021-10-21)
PROC: 06HY33Z Insertion of Infusion Device into Lower Vein, Percutaneous Approach (ICD-10-PCS; 2021-10-21)
PROC: B54MZZA Ultrasonography of Right Upper Extremity Veins, Guidance (ICD-10-PCS; 2021-10-26)
PROC: 05HY33Z Insertion of Infusion Device into Upper Vein, Percutaneous Approach (ICD-10-PCS; 2021-10-26)
DX: A41.9 Sepsis, unspecified organism (principal); N17.0 Acute kidney failure with tubular necrosis; I50.33 Acute on chronic diastolic (congestive) heart failure; J18.9 Pneumonia, unspecified organism; J96.02 Acute respiratory failure with hypercapnia; E87.0 Hyperosmolality and hypernatremia; J96.01 Acute respiratory failure with hypoxia; E44.1 Mild protein-calorie malnutrition; I11.0 Hypertensive heart disease with heart failure; E83.39 Other disorders of phosphorus metabolism; I48.91 Unspecified atrial fibrillation; Z20.822 Contact with and (suspected) exposure to COVID-19; E87.6 Hypokalemia; F17.210 Nicotine dependence, cigarettes, uncomplicated; I25.10 Atherosclerotic heart disease of native coronary artery without angina pectoris; J44.0 Chronic obstructive pulmonary disease with (acute) lower respiratory infection; D64.9 Anemia, unspecified; E66.9 Obesity, unspecified; Z95.5 Presence of coronary angioplasty implant and graft; Z79.82 Long term (current) use of aspirin; Z79.899 Other long term (current) drug therapy; Z78.1 Physical restraint status; Z68.36 Body mass index [BMI] 36.0-36.9, adult; Z90.10 Acquired absence of unspecified breast and nipple; I25.2 Old myocardial infarction; Z85.3 Personal history of malignant neoplasm of breast; Z86.14 Personal history of Methicillin resistant Staphylococcus aureus infection; Z86.73 Personal history of transient ischemic attack (TIA), and cerebral infarction without residual deficits; Z87.01 Personal history of pneumonia (recurrent)
CPT/HCPCS: 36415; 36600; 71045; 71275; 76770; 76937; 80048; 80053; 80202; 80305; 80320; 81003; 82375; 82550; 82805; 83605; 83735; 83880; 84100; 84145; 84484; 85025; 86850; 86900; 87070; 87426; 92610; 93005; 93306; 94002; 94003; 94640; 94644; 94667; 97116; 97162; 97166; 97530; 99291; C1725; C9113; C9803; J0330; J0692; J1650; J1885; J1940; J2185; J2250; J2405; J2704; J2930; J3010; J3370; J3475; J3480; J3490; J7030; J7040; J7050; J7060; J7608; Q9967; U0003; U0005; G0480